=== PATIENT | male | born 1935 | race Caucasian/White ===

== ENCOUNTER 2021-02-20 04:55 | Inpatient (IN) | payer MEDICARE ==
[~2021-02-20] VITALS: Ht 188 cm; Wt 106.7 kg
[2021-02-20 04:58] VITALS: BP 170/74
[2021-02-20] MEDS ORDERED: DEXTROSE 50% 25 GM / 50ML DISP.SYRIN. IV PRN (05:15)
[2021-02-20] MEDS ORDERED: ACETAMINOPHEN 325 MG TABLET. PO PRN (05:15)
[2021-02-20] MEDS ORDERED: HEPARIN for IV BOLUS 10,000 UNIT/10 ML VIAL. IV PRN (05:15)
[2021-02-20] MEDS ORDERED: MORPHINE SULFATE 4 MG/ML INJ. IV PRN (05:15)
--- NOTE | 2021-02-20 06:00 | RAD ---
AP chest x-ray HISTORY: Covid infection patient underwent investigation. FINDINGS: Heart size normal. Aortic arch calcified plaque. No pneumothorax. Small pleural effusions a long the diaphragms blunting the lateral costophrenic angles. Mild fissural thickening at the minor f issure. There are bilateral pulmonary interstitial and alveolar infiltrates within lower lobe greater than upper lobe distribution. Bones are unremarkable. IMPRESSION: Bilateral pulmonary interstitial and alveolar infiltrates, this may represent pulmonary e elke given the presence of small bilateral pleural effusions. Disseminated infection including atypic al viral pneumonia is also a consideration Electronically signed by: Diego Moore MD (02/20/2021 5:58 AM) [facility]
[2021-02-20 07:00] VITALS: BP 148/69
[2021-02-20] MEDS ORDERED: TAMS0.4C97 PO (08:27)
[2021-02-20] MEDS ORDERED: CARV25TA2 PO (08:27)
[2021-02-20] MEDS ORDERED: METF10007 PO (08:27)
[2021-02-20] MEDS ORDERED: ATOR40TA PO (08:27)
[2021-02-20] MEDS ORDERED: ASPI-424 PO (08:27)
[2021-02-20] MEDS ORDERED: EMPA25TA PO (08:27)
[2021-02-20] MEDS: ASPIRIN ENTERIC COATED 81 MG TABLET.DR. PO SCH (10:58)
--- NOTE | 2021-02-20 10:59 | PDOC1 ---
History and Physical Date of Admission Date of Admission DATE: 02/20/21 TIME: 10:58 Identification/Chief Complaint Chief Complaint SHORTNESS OF BREATH History of Present Illness History of Present Illness 85 YR OLD MALE, TRANFER FOR [facility] ER HERE DUE TO NSTEMI, ELEVATED TROPONIN Past Medical History Cardiovascular: CHF, Hyperlipidemia Pulmonary: No pertinent hx Heme/Onc: No pertinent hx Musculoskeletal: Osteoarthritis Rheumatologic: Fibromyalgia Renal/: No pertinent hx Endocrine: Diabetes Dermatology: No pertinent hx Family History Family History: High Cholestrol, Hypertension Social History Smoke: No ALCOHOL: none Drugs: None Current Medications Current Medications Current Medications Morphine Sulfate (Morphine Sulfate) 3 mg PRN Q3HRS PRN IV PAIN; Start 02/20/21 at 05:15 Acetaminophen (Tylenol) 650 mg PRN Q6HRS PRN PO MILD PAIN / TEMP > 100.3'F; Start 02/20/21 at 05:15 Dextrose (Dextrose 50%-Water Syringe) 12.5 gm PRN Q15MIN PRN IV SEE COMMENTS; Start 02/20/21 at 05:15 Heparin Sodium/ Dextrose 250 ml @ 12.936 mls/ hr CONT PRN IV PER PROTOCOL; Start 02/20/21 at 05:15 Heparin Sodium (Porcine) (Heparin Sodium) 2,700 unit PRN Q6HRS PRN IV FOR UFH LEVEL LESS THAN 0.2; Start 02/20/21 at 05:15 Aspirin (Ecotrin) 81 mg DAILYWBKFT PO ; Start 02/20/21 at 11:00 Metoprolol Tartrate (Lopressor) 25 mg 1X ONCE PO ; Start 02/20/21 at 11:00; Stop 02/20/21 at 11:01 Metoprolol Tartrate (Lopressor) 25 mg BID PO ; Start 02/20/21 at 21:00 Clopidogrel Bisulfate (Plavix) 600 mg 1X ONCE PO ; Start 02/20/21 at 11:00; Stop 02/20/21 at 11:01 Clopidogrel Bisulfate (Plavix) 75 mg DAILYWBKFT PO ; Start 02/21/21 at 08:00 Atorvastatin Calcium (Lipitor) 40 mg QHS PO ; Start 02/20/21 at 21:00 Active Scripts Active Reported Lipitor (Atorvastatin Calcium) 40 Mg Tablet 1 Tab PO QHS Adult Low Dose Aspirin Ec (Aspirin) 81 Mg Tablet.dr 1 Tab PO DAILY 30 Days Flomax (Tamsulosin Hcl) 0.4 Mg Cap.er.24h 1 Cap PO BID Carvedilol 25 Mg Tablet 25 Mg PO DAILY Metformin Hcl 1,000 Mg Tablet 1,000 Mg PO BIDWMEALS Jardiance (Empagliflozin) 25 Mg Tablet 25 Mg PO DAILY Allergies Allergies: Coded Allergies: Penicillins (Verified Allergy, Unknown, 02/20/21) procaine (Verified Allergy, Unknown, 02/20/21) syncope ROS Review of System 14 PT ROS OTHERWISE NEG General: No: Chills, Night Sweats, Fatigue, Malaise, Appetite, Other PSYCHOLOGICAL ROS: No: Anxiety, Behavioral Disorder, Concentration difficultie, Decreased libido, Depression, Disorientation, Hallucinations, Hostility, Irritablity, Memory difficulties, Mood Swings, Obsessive thoughts, Physical abuse, Sexual abuse, Sleep disturbances, Suicidal ideation, Other Eyes: Yes Decreased vision; No Blurry vision, No Double vision, No Dry eyes, No Excessive tearing, No Eye Pain, No Itchy Eyes, No Loss of vision, No Photophobia, No Scotomata, No Uses contacts, No Uses glasses, No Other HEENT: No: Heacaches, Visual Changes, Hearing change, Nasal congestion, Nasal discharge, Oral lesions, Sinus pain, Sore Throat, Epistaxis, Sneezing, Snoring, Tinnitus, Vertigo, Vocal changes, Other ALLERGY AND IMMUNOLOGY: YES: Hives; No: Insect Bite Sensitivity, Itchy/Watery Eyes, Nasal Congestion, Post Nasal Drip, Seasonal Allergies, Other Hematological and Lymphatic: No: Bleeding Problems, Blood Clots, Blood Transfusions, Brusing, Night Sweats, Pallor, Swollen Lymph Nodes, Other ENDOCRINE: No: Breast Changes, Galactorrhea, Hair Pattern Changes, Hot Flashes, Malaise/lethargy, Mood Swings, Palpitations, Polydipsia/polyuria, Skin Changes, Temperature Intolerance, Unexpected Weight Changes, Other Breast: No New/Changing Breast Lumps, No Nipple changes, No Nipple discharge, No Other Respiratory: No: Cough, Hemoptysis, Orthopnea, Pleuritic Pain, Shortness of breath, SOB with excertion, Sputum Changes, Stridor, Tachypnea, Wheezing, Other Cardiovascular: yes Chest Pain; No Palpitations, No Orthopnea, No Paroxysmal Noc. Dyspnea, No Edema, No Lt Headedness, No Other Gastrointestinal: No Nausea, No Vomiting, No Abdominal Pain, No Diarrhea, No Constipation, No Melena, No Hematochezia, No Other Genitourinary: No Dysuria, No Frequency, No Incontinence, No Hematuria, No Retention, No Discharge, No Urgency, No Pain, No Flank Pain, No Other, No , No , No , No , No , No , No Musculoskeletal: Yes Joint Stiffness; No Gait Disturbance, No Joint Pain, No Joint Swelling, No Muscle Pain, No Muscular Weakness, No Pain In:, No Swelling In:, No Other Neurological: No Behavorial Changes, No Bowel/Bladder ControlChng, No Confusion, No Dizziness, No Gait Disturbance, No Headaches, No Impaired Coord/balance, No Memory Loss, No Numbness/Tingling, No Seizures, No Speech Problems, No Tremors, No Visual Changes, No Weakness, No Other Skin: No Dry Skin, No Eczema, No Hair Changes, No Lumps, No Mole Changes, No Mottling, No Nail Changes, No Pruritus, No Rash, No Skin Lesion Changes, No Other, No Acne Physical Exam General: Alert, Oriented X3, Cooperative, No acute distress HEENT: PERRLA Lungs: Clear to auscultation, Normal air movement Heart: RRR Breasts: Not examined Abdomen: Normal bowel sounds, Soft Rectal Exam: not examined PELVIC: Examination not indicated Extremities: No cyanosis Neuro: Normal speech, Sensation intact, Cranial nerves 3-12 NL Psych/Mental Status: Mental status NL, Mood NL Vitals Vitals Vital Signs Date Time Temp Pulse Resp B/P (MAP) Pulse Ox O2 Delivery O2 Flow Rate FiO2 02/20/21 08:00 Nasal Cannula 6.0 02/20/21 04:58 98.8 111 20 170/74 (106) 97 98.8 Labs Labs Laboratory Tests Test 02/20/21 09:25 Heparin Anti-Xa Act, Unfractionated 0.56 IU/mL (0.30-0.70) Troponin I Quantitative 16.206 ng/mL (0.000-0.055) UZ-Qzu-F-Type Natriuretic Peptide 7845 pg/mL (0-449) Laboratory Tests Test 02/20/21 09:25 Heparin Anti-Xa Act, Unfractionated 0.56 IU/mL (0.30-0.70) Troponin I Quantitative 16.206 ng/mL (0.000-0.055) AY-Kmb-R-Type Natriuretic Peptide 7845 pg/mL (0-449) VTE Prophylaxis Ordered VTE Prophylaxis Devices: Yes VTE Pharmacological Prophylaxi: Yes Assessment/Plan Assessment/Plan IMPRESSION Acute NSTEMI Acute hypoxic resp failure OBESITY Visual impairment long standing DIABETES plan admit CVC BED Consult cardiology cxr cbc, comp heparin protocol, plavix cath today planned ? MONDAY FLP Justifications for Admission Other Justification PRAVEEN PATINO MD Feb 20, 2021 10:58
[2021-02-20 11:00] VITALS: BP_SYST 136; BP_SYST 145; BP_DIAS 63; BP_DIAS 67
[2021-02-20] MEDS ORDERED: CLOPIDOGREL BISULFATE 75 MG TABLET PO ONE (11:00)
[2021-02-20] MEDS ORDERED: METOPROLOL TART IMMED RELEASE 25 MG TABLET. PO ONE (11:00)
--- NOTE | 2021-02-20 11:13 | EKG ---
[facility] [address] [place] [address] Test Date: 2021-02-20 Test Time: 10:52:53 Pat Name: AUDRA BUSBY Department: Room: [facility] Gender: M Data Control Assistant: : 1935 Requested By: SEAN SIMONS Order Number: [id number] Reading MD: Measurements Intervals [place] Rate: 91 P: 27 [place]: 168 QRS: -15 QRSD: 94 T: 10 QT: 412 QTc: 509 Interpretive Statements SINUS RHYTHM LEFTWARD AXIS PROLONGED QT NO SPECIFIC ECG ABNORMALITIES RI6.02 No previous ECG available for comparison
--- NOTE | 2021-02-20 12:11 | PDOC2 ---
CARDIOLOGY CONSULT NOTE DATE OF SERVICE: DATE: 02/20/21 TIME: 12:07 CHIEF COMPLAINT: Chest pain HPI: Mr. Morales is an 85-year-old man with past medical history as noted below who presents to the hospital in the setting of worsening anginal symptoms. He was seen in the ER at [facility] which revealed subtle inferolateral ischemic changes and an elevated troponin. He was appropriately treated with aspirin and heparinization and transferred to [facility] for further evaluation. After treatment with pain medications he feels better. Today he denies any specific angina, dyspnea, orthopnea or PND. At baseline he is able to ambulate and do most activities. He is mostly limited due to arthritis of his knees and vascular disease in his legs. He reports that he previously had stress testing and actually exercises 3-4 times a week prior to this episode of chest pain. No syncope or palpitations. PMHX: #1. Peripheral arterial disease status post femorofemoral bypass graft #2. Hypertension #3. Dyslipidemia #4. Diabetes type 2 SOCHX: No alcohol, tobacco or illicit drug use. He is . FAMHX: Noncontributory CURRENT MEDS: Current Medications Medications (Trade) Dose Ordered Sig/Royce Route PRN Reason Start Time Stop Time Status Last Admin Dose Admin Aspirin (Ecotrin) 81 mg DAILYWBKFT PO 02/20/21 11:00 02/20/21 10:58 Metoprolol Tartrate (Lopressor) 25 mg 1X ONCE PO 02/20/21 11:00 02/20/21 11:01 DC 02/20/21 10:59 Clopidogrel Bisulfate (Plavix) 600 mg 1X ONCE PO 02/20/21 11:00 02/20/21 11:01 DC 02/20/21 10:58 ALLERGIES: Allergies Coded Allergies Type Severity Reaction Last Updated Verified Penicillins Allergy Unknown 02/20/21 Yes procaine Allergy Unknown 02/20/21 Yes ROS: Negative for 10 out of 14 systems reviewed unless otherwise mentioned above in HPI PHYSICAL EXAM: Vital Signs/I&O: Vital Signs Date Time Temp Pulse Resp B/P (MAP) Pulse Ox O2 Delivery O2 Flow Rate FiO2 02/20/21 10:59 111 170/74 02/20/21 08:00 Nasal Cannula 6.0 02/20/21 04:58 98.8 20 97 98.8 I & O 02/19/21 02/19/21 02/20/21 15:00 23:00 07:00 Intake Total 0 ml Output Total 475 ml Balance -475 ml Physical Exam: GEN.: No apparent distress. Alert and oriented. HEENT: Head is normocephalic, atraumatic NECK: Supple. LUNGS: Clear to auscultation. HEART: RRR, S1, S2 present. Peripheral pulses intact ABDOMEN: Soft, nontender. Positive bowel sounds. EXTREMITIES: Without any cyanosis. Diminished pedal pulses NEUROLOGIC: Normal speech, normal tone PSYCHIATRIC: Normal affect, normal mood. SKIN: No ulcerations DIAGNOSTIC TESTING: EKG reviewed and demonstrates subtle inferolateral ischemia Troponin elevated at 16 ASSESSMENT: #1. Non-ST elevation myocardial infarction #2. History of peripheral arterial disease with lower extremity revascularization with a femorofemoral bypass graft #3. Hypertension #4. Dyslipidemia PLAN: #1. Continue anticoagulation with heparin. We will give aspirin and Plavix #2. He will also be started on statin therapy and beta-de. I discussed the risks and benefits of cardiac catheterization and he is willing to proceed. At this present time given that he is chest pain-free we will continue antiplatelet and anticoagulant therapy and obtain echocardiogram. Plan for cardiac catheterization on Monday unless his cardiac enzymes are significantly elevated. SEAN SIMONS MD Feb 20, 2021 12:11
[2021-02-20 12:26] LABS: BASO # 0.1 x10^3/uL (0.0-0.2); BASO % 1 % (0-3); EOS # 0.1 x10^3/uL (0.0-0.7); EOS % 1 % (0-3); HEMATOCRIT 23.2 % (39.0-53.0); HEMOGLOBIN 7.8 g/dL (13.0-17.5); LYMPH # 1.6 x10^3/uL (1.0-4.8); LYMPH % 13 % (24-48); MEAN CORPUSCULAR HEMOGLOBIN 31 pg (25-35); MEAN CORPUSCULAR HGB CONC 34 g/dL (31-37); MEAN CORPUSCULAR VOLUME 93 fL (79-100); MONO # 1.2 x10^3/uL (0.0-1.1); MONO % 10 % (0-9); NEUT # 9.4 x10^3/uL (1.8-7.7); NEUT % 76 % (31-73); PLATELET COUNT 251 x10^3/uL (140-400); RED BLOOD COUNT 2.51 x10^6/uL (4.30-5.70); RED CELL DISTRIBUTION WIDTH 14.9 % (11.5-14.5); WHITE BLOOD COUNT 12.4 x10^3/uL (4.0-11.0)
[2021-02-20] MEDS ORDERED: guaiFENesin ORAL 200 MG/10 ML LIQUID. PO PRN (12:30)
[2021-02-20] MEDS ORDERED: 0.9 % SODIUM CHLORIDE 10 ML DISP.SYRIN. IV PRN (12:30)
[2021-02-20] MEDS ORDERED: ONDANSETRON PF 4 MG/2 ML VIAL. IV PRN (12:30)
[2021-02-20] MEDS ORDERED: ACETAMINOPHEN 650 MG/20.3 ML SOLUTION. GT PRN (12:30)
[2021-02-20] MEDS ORDERED: ALBUTEROL SULFATE 2.5 MG/3 ML NEBU. NEB PRN (12:30)
[2021-02-20] MEDS ORDERED: SODIUM PHOSPHATES 19/7GM 133 ML ENEMA. PR PRN (12:30)
[2021-02-20 12:34] LABS: ALBUMIN 3.2 g/dL (3.4-5.0); ALBUMIN/GLOBULIN RATIO 1.1 (1.0-1.7); CALCIUM 9.6 mg/dL (8.5-10.1); CREATININE 1.7 mg/dL (0.7-1.3); GFR 38.7; POTASSIUM 4.7 mmol/L (3.5-5.1); TOTAL BILIRUBIN 0.4 mg/dL (0.2-1.0); TOTAL PROTEIN 6.1 g/dL (6.4-8.2)
[2021-02-20 13:07] LABS: CHOLESTEROL/HDL RATIO 5.6
[2021-02-20 15:00] VITALS: BP 129/61
[2021-02-20] MEDS: IV NORMAL SALINE 1000ML BAG 1,000 ML IV SCH (16:44)
[2021-02-20] MEDS: TAMSULOSIN 0.4 MG CAP.ER.24H. PO SCH ×2 (16:57→20:38)
[2021-02-20 19:00] VITALS: BP 157/56
[2021-02-20] MEDS: ATORVASTATIN CALCIUM 40 MG TABLET. PO SCH (20:38)
[2021-02-20] MEDS: METOPROLOL TART IMMED RELEASE 25 MG TABLET. PO SCH (20:39)
[2021-02-20 23:00] VITALS: BP 118/58
[2021-02-21] VITALS (14 sets, daily range): BP systolic 126–162; BP diastolic 59–73
[2021-02-21] MEDS: HEPARIN 25,000UTS/250ML PREMIX 250 ML IV PRN ×2 (00:46→23:43)
[2021-02-21] MEDS: IV NORMAL SALINE 1000ML BAG 1,000 ML IV SCH (02:38)
--- NOTE | 2021-02-21 05:51 | EKG ---
[facility] [address] [place] [address] Test Date: 2021-02-21 Test Time: 05:41:51 Pat Name: AUDRA BUSBY Department: Room: [facility] Gender: M [employer]el Plant Operator: ELIZABETH : 1935 Requested By: PRAVEEN PATINO Order Number: [id number] Reading MD: Measurements Intervals [place] Rate: 93 P: 26 MS: 162 QRS: -20 QRSD: 92 T: 23 QT: 314 QTc: 393 Interpretive Statements SINUS RHYTHM LEFTWARD AXIS R-S TRANSITION ZONE IN V LEADS DISPLACED TO THE RIGHT QRS(T) CONTOUR ABNORMALITY CONSIDER ANTEROSEPTAL MYOCARDIAL DAMAGE ST & T ABNORMALITY, CONSIDER ANTERIOR ISCHEMIA OR LEFT VENTRICULAR STRAIN INFERIOR ISCHEMIA OR LEFT VENTRICULAR STRAIN ABNORMAL ECG RI6.02 Compared to ECG 02/20/2021 10:52:53 T-wave abnormality now present Possible ischemia now present Prolonged QT interval no longer present
[2021-02-21] MEDS ORDERED: NITROGLYCERIN SUBLINGUAL 0.4 MG BOTTLE OF 25. SL PRN (06:00)
[2021-02-21] MEDS: ASPIRIN ENTERIC COATED 81 MG TABLET.DR. PO SCH (07:44)
[2021-02-21] MEDS: METOPROLOL TART IMMED RELEASE 25 MG TABLET. PO SCH ×2 (07:45→20:24)
[2021-02-21] MEDS: TAMSULOSIN 0.4 MG CAP.ER.24H. PO SCH ×2 (07:45→20:23)
[2021-02-21] MEDS ORDERED: CLOPIDOGREL BISULFATE 75 MG TABLET PO SCH (08:00)
[2021-02-21] MEDS ORDERED: IODIXANOL 320 MG/ML 100 ML VIAL. ONE (08:53)
[2021-02-21] MEDS ORDERED: LIDOCAINE 1% PF 2 ML VIAL. ONE (08:53)
[2021-02-21] MEDS ORDERED: HEPARIN for ARTERIAL LINE 1,500 ML ONE (08:53)
[2021-02-21 08:58] LABS: HEMATOCRIT 22.6 % (39.0-53.0); HEMOGLOBIN 7.6 g/dL (13.0-17.5); RED BLOOD COUNT 2.44 x10^6/uL (4.30-5.70); RED CELL DISTRIBUTION WIDTH 14.9 % (11.5-14.5); WHITE BLOOD COUNT 12.3 x10^3/uL (4.0-11.0)
[2021-02-21] MEDS ORDERED: ASPIRIN ENTERIC COATED 81 MG TABLET.DR. PO SCH (09:00)
[2021-02-21] MEDS ORDERED: NON FORMULARY ITEM (Empagliflozin (Jardiance) 25 MG) PO SCH (09:00)
[2021-02-21] MEDS: FLUTICASONE 50MCG/NASAL SPRAY 16GM BOTTLE. NS SCH (09:00)
[2021-02-21] MEDS ORDERED: NON FORMULARY ITEM (Carvedilol 25 MG) PO SCH (09:00)
[2021-02-21] MEDS ORDERED: MIDAZOLAM HCL/PF 2 MG/2 ML VIAL. ONE (09:09)
[2021-02-21] MEDS ORDERED: fentaNYL PF VIAL 100 MCG/2 ML VIAL ONE (09:09)
[2021-02-21] MEDS ORDERED: HEPARIN for IV BOLUS 10,000 UNIT/10 ML VIAL. ONE (09:10)
[2021-02-21] MEDS ORDERED: NITROGLYCERIN 200 MCG/2 ML SYRINGE FOR CATH/VASC LAB. ONE (09:10)
[2021-02-21] MEDS ORDERED: VERAPAMIL 5 MG/2 ML VIAL. ONE (09:10)
[2021-02-21] MEDS ORDERED: VERAPAMIL 5 MG/2 ML VIAL. IART ONE (09:30)
[2021-02-21] MEDS ORDERED: fentaNYL PF VIAL 100 MCG/2 ML VIAL IV ONE (09:30)
[2021-02-21] MEDS ORDERED: HEPARIN for IV BOLUS 10,000 UNIT/10 ML VIAL. IART ONE (09:30)
[2021-02-21] MEDS ORDERED: NITROGLYCERIN 200 MCG/2 ML SYRINGE FOR CATH/VASC LAB. IART ONE (09:30)
[2021-02-21] MEDS ORDERED: LIDOCAINE 1% PF 2 ML VIAL. INJ ONE ×2 (09:30→10:00)
[2021-02-21] MEDS ORDERED: IODIXANOL 320 MG/ML 100 ML VIAL. IART ONE (09:30)
[2021-02-21] MEDS ORDERED: MIDAZOLAM HCL/PF 2 MG/2 ML VIAL. IV ONE (09:30)
[2021-02-21] MEDS ORDERED: CONTRAST GIVEN. MC PRN (09:45)
[2021-02-21] MEDS ORDERED: FUROSEMIDE 40 MG/4 ML VIAL. IVP ONE (10:45)
--- NOTE | 2021-02-21 10:50 | PDOC ---
PROGRESS NOTES Date of Service: DATE: 02/21/21 TIME: 10:50 Chief Complaint Chief Complaint Assessment/Plan Assessment/Plan IMPRESSION Acute NSTEMI Acute hypoxic resp failure OBESITY Visual impairment long standing DIABETES plan admit CVC BED Consult cardiology cxr cbc, comp heparin protocol, plavix cath today planned / STENTS MONDAY FLP D/W IN ROOM Justifications for Admission Other Justification History of Present Illness History of Present Illness Identification/Chief Complaint Chief Complaint SHORTNESS OF BREATH History of Present Illness History of Present Illness 85 YR OLD MALE, TRANFER FOR [facility] ER HERE DUE TO NSTEMI, ELEVATED TROPONIN Past Medical History Cardiovascular: CHF, Hyperlipidemia Pulmonary: No pertinent hx Heme/Onc: No pertinent hx Musculoskeletal: Osteoarthritis Rheumatologic: Fibromyalgia Renal/: No pertinent hx Endocrine: Diabetes Dermatology: No pertinent hx Family History Family History: High Cholestrol, Hypertension Social History Smoke: No ALCOHOL: none Drugs: None Current Medications Current Medications Current Medications Morphine Sulfate (Morphine Sulfate) 3 mg PRN Q3HRS PRN IV PAIN; Start 02/20/21 at 05:15 Acetaminophen (Tylenol) 650 mg PRN Q6HRS PRN PO MILD PAIN / TEMP > 100.3'F; Start 02/20/21 at 05:15 Dextrose (Dextrose 50%-Water Syringe) 12.5 gm PRN Q15MIN PRN IV SEE COMMENTS; Start 02/20/21 at 05:15 Heparin Sodium/ Dextrose 250 ml @ 12.936 mls/ hr CONT PRN IV PER PROTOCOL; Start 02/20/21 at 05:15 Heparin Sodium (Porcine) (Heparin Sodium) 2,700 unit PRN Q6HRS PRN IV FOR UFH LEVEL LESS THAN 0.2; Start 02/20/21 at 05:15 Aspirin (Ecotrin) 81 mg DAILYWBKFT PO ; Start 02/20/21 at 11:00 Metoprolol Tartrate (Lopressor) 25 mg 1X ONCE PO ; Start 02/20/21 at 11:00; Stop 02/20/21 at 11:01 Metoprolol Tartrate (Lopressor) 25 mg BID PO ; Start 02/20/21 at 21:00 Clopidogrel Bisulfate (Plavix) 600 mg 1X ONCE PO ; Start 02/20/21 at 11:00; Stop 02/20/21 at 11:01 Clopidogrel Bisulfate (Plavix) 75 mg DAILYWBKFT PO ; Start 02/21/21 at 08:00 Atorvastatin Calcium (Lipitor) 40 mg QHS PO ; Start 02/20/21 at 21:00 Active Scripts Active Reported Lipitor (Atorvastatin Calcium) 40 Mg Tablet 1 Tab PO QHS Adult Low Dose Aspirin Ec (Aspirin) 81 Mg Tablet.dr 1 Tab PO DAILY 30 Days Flomax (Tamsulosin Hcl) 0.4 Mg Cap.er.24h 1 Cap PO BID Carvedilol 25 Mg Tablet 25 Mg PO DAILY Metformin Hcl 1,000 Mg Tablet 1,000 Mg PO BIDWMEALS Jardiance (Empagliflozin) 25 Mg Tablet 25 Mg PO DAILY Allergies Allergies: Coded Allergies: Penicillins (Verified Allergy, Unknown, 02/20/21) procaine (Verified Allergy, Unknown, 02/20/21) syncope ROS Review of System 14 PT ROS OTHERWISE NEG General: No: Chills, Night Sweats, Fatigue, Malaise, Appetite, Other PSYCHOLOGICAL ROS: No: Anxiety, Behavioral Disorder, Concentration difficultie, Decreased libido, Depression, Disorientation, Hallucinations, Hostility, Irritablity, Memory difficulties, Mood Swings, Obsessive thoughts, Physical abuse, Sexual abuse, Sleep disturbances, Suicidal ideation, Other Eyes: Yes Decreased vision; No Blurry vision, No Double vision, No Dry eyes, No Excessive tearing, No Eye Pain, No Itchy Eyes, No Loss of vision, No Photophobia, No Scotomata, No Uses contacts, No Uses glasses, No Other HEENT: No: Heacaches, Visual Changes, Hearing change, Nasal congestion, Nasal discharge, Oral lesions, Sinus pain, Sore Throat, Epistaxis, Sneezing, Snoring, Tinnitus, Vertigo, Vocal changes, Other ALLERGY AND IMMUNOLOGY: YES: Hives; No: Insect Bite Sensitivity, Itchy/Watery Eyes, Nasal Congestion, Post Nasal Drip, Seasonal Allergies, Other Hematological and Lymphatic: No: Bleeding Problems, Blood Clots, Blood Transfusions, Brusing, Night Sweats, Pallor, Swollen Lymph Nodes, Other ENDOCRINE: No: Breast Changes, Galactorrhea, Hair Pattern Changes, Hot Flashes, Malaise/lethargy, Mood Swings, Palpitations, Polydipsia/polyuria, Skin Changes, Temperature Intolerance, Unexpected Weight Changes, Other Breast: No New/Changing Breast Lumps, No Nipple changes, No Nipple discharge, No Other Respiratory: No: Cough, Hemoptysis, Orthopnea, Pleuritic Pain, Shortness of breath, SOB with excertion, Sputum Changes, Stridor, Tachypnea, Wheezing, Other Cardiovascular: yes Chest Pain; No Palpitations, No Orthopnea, No Paroxysmal Noc. Dyspnea, No Edema, No Lt Headedness, No Other Gastrointestinal: No Nausea, No Vomiting, No Abdominal Pain, No Diarrhea, No Constipation, No Melena, No Hematochezia, No Other Genitourinary: No Dysuria, No Frequency, No Incontinence, No Hematuria, No Retention, No Discharge, No Urgency, No Pain, No Flank Pain, No Other, No , No , No , No , No , No , No Musculoskeletal: Yes Joint Stiffness; No Gait Disturbance, No Joint Pain, No Joint Swelling, No Muscle Pain, No Muscular Weakness, No Pain In:, No Swelling In:, No Other Neurological: No Behavorial Changes, No Bowel/Bladder ControlChng, No Confusion, No Dizziness, No Gait Disturbance, No Headaches, No Impaired Coord/balance, No Memory Loss, No Numbness/Tingling, No Seizures, No Speech Problems, No Tremors, No Visual Changes, No Weakness, No Other Skin: No Dry Skin, No Eczema, No Hair Changes, No Lumps, No Mole Changes, No Mottling, No Nail Changes, No Pruritus, No Rash, No Skin Lesion Changes, No Other, No Acne Vitals Vitals Vital Signs Date Time Temp Pulse Resp B/P (MAP) Pulse Ox O2 Delivery O2 Flow Rate FiO2 02/21/21 10:34 16 99 Nasal Cannula 3.0 02/21/21 10:34 96 114/56 02/21/21 06:36 98.6 98.6 Physical Exam General: Alert, Oriented X3, Cooperative, No acute distress Heart: Regular rate Lungs: Clear Abdomen: Normal bowel sounds, Soft, No tenderness Extremities: No clubbing, No cyanosis Labs LABS Laboratory Tests Test 02/20/21 14:50 02/20/21 17:30 02/20/21 19:50 02/20/21 20:20 Troponin I Quantitative 27.093 ng/mL (0.000-0.055) 31.930 ng/mL (0.000-0.055) Heparin Anti-Xa Act, Unfractionated 0.76 IU/mL (0.30-0.70) Glucose (Fingerstick) 207 mg/dL (70-99) Test 02/21/21 00:30 02/21/21 07:36 02/21/21 08:20 02/21/21 08:36 Heparin Anti-Xa Act, Unfractionated 0.47 IU/mL (0.30-0.70) Glucose (Fingerstick) 88 mg/dL (70-99) 162 mg/dL (70-99) White Blood Count 12.3 x10^3/uL (4.0-11.0) Red Blood Count 2.44 x10^6/uL (4.30-5.70) Hemoglobin 7.6 g/dL (13.0-17.5) Hematocrit 22.6 % (39.0-53.0) Mean Corpuscular Volume 93 fL (79-100) Mean Corpuscular Hemoglobin 31 pg (25-35) Mean Corpuscular Hemoglobin Concent 34 g/dL (31-37) Red Cell Distribution Width 14.9 % (11.5-14.5) Platelet Count 265 x10^3/uL (140-400) Comment Review of Relevant I have reviewed the following items riky (where applicable) has been applied. Labs Laboratory Tests Test 02/20/21 09:25 02/20/21 14:50 02/20/21 17:30 02/20/21 19:50 White Blood Count 12.4 x10^3/uL (4.0-11.0) Red Blood Count 2.51 x10^6/uL (4.30-5.70) Hemoglobin 7.8 g/dL (13.0-17.5) Hematocrit 23.2 % (39.0-53.0) Mean Corpuscular Volume 93 fL (79-100) Mean Corpuscular Hemoglobin 31 pg (25-35) Mean Corpuscular Hemoglobin Concent 34 g/dL (31-37) Red Cell Distribution Width 14.9 % (11.5-14.5) Platelet Count 251 x10^3/uL (140-400) Neutrophils (%) (Auto) 76 % (31-73) Lymphocytes (%) (Auto) 13 % (24-48) Monocytes (%) (Auto) 10 % (0-9) Eosinophils (%) (Auto) 1 % (0-3) Basophils (%) (Auto) 1 % (0-3) Neutrophils # (Auto) 9.4 x10^3/uL (1.8-7.7) Lymphocytes # (Auto) 1.6 x10^3/uL (1.0-4.8) Monocytes # (Auto) 1.2 x10^3/uL (0.0-1.1) Eosinophils # (Auto) 0.1 x10^3/uL (0.0-0.7) Basophils # (Auto) 0.1 x10^3/uL (0.0-0.2) Heparin Anti-Xa Act, Unfractionated 0.56 IU/mL (0.30-0.70) 0.76 IU/mL (0.30-0.70) Sodium Level 142 mmol/L (136-145) Potassium Level 4.7 mmol/L (3.5-5.1) Chloride Level 108 mmol/L (98-107) Carbon Dioxide Level 25 mmol/L (21-32) Anion Gap 9 (6-14) Blood Urea Nitrogen 26 mg/dL (8-26) Creatinine 1.7 mg/dL (0.7-1.3) Estimated GFR (Cockcroft-Gault) 38.7 BUN/Creatinine Ratio 15 (6-20) Glucose Level 178 mg/dL (70-99) Calcium Level 9.6 mg/dL (8.5-10.1) Total Bilirubin 0.4 mg/dL (0.2-1.0) Aspartate Amino Transf (AST/SGOT) 66 U/L (15-37) Alanine Aminotransferase (ALT/SGPT) 23 U/L (16-63) Alkaline Phosphatase 87 U/L (46-116) Troponin I Quantitative 16.206 ng/mL (0.000-0.055) 27.093 ng/mL (0.000-0.055) ES-Pxe-G-Type Natriuretic Peptide 7845 pg/mL (0-449) Total Protein 6.1 g/dL (6.4-8.2) Albumin 3.2 g/dL (3.4-5.0) Albumin/Globulin Ratio 1.1 (1.0-1.7) Triglycerides Level 191 mg/dL (0-150) Cholesterol Level 200 mg/dL (0-200) LDL Cholesterol, Calculated 126 mg/dL (0-100) VLDL Cholesterol, Calculated 38 mg/dL (0-40) Non-HDL Cholesterol Calculated 164 mg/dL (0-129) HDL Cholesterol 36 mg/dL (40-60) Cholesterol/HDL Ratio 5.6 Glucose (Fingerstick) 207 mg/dL (70-99) Test 02/20/21 20:20 02/21/21 00:30 02/21/21 07:36 02/21/21 08:20 Troponin I Quantitative 31.930 ng/mL (0.000-0.055) Heparin Anti-Xa Act, Unfractionated 0.47 IU/mL (0.30-0.70) Glucose (Fingerstick) 88 mg/dL (70-99) White Blood Count 12.3 x10^3/uL (4.0-11.0) Red Blood Count 2.44 x10^6/uL (4.30-5.70) Hemoglobin 7.6 g/dL (13.0-17.5) Hematocrit 22.6 % (39.0-53.0) Mean Corpuscular Volume 93 fL (79-100) Mean Corpuscular Hemoglobin 31 pg (25-35) Mean Corpuscular Hemoglobin Concent 34 g/dL (31-37) Red Cell Distribution Width 14.9 % (11.5-14.5) Platelet Count 265 x10^3/uL (140-400) Test 02/21/21 08:36 Glucose (Fingerstick) 162 mg/dL (70-99) Laboratory Tests Test 02/20/21 14:50 02/20/21 17:30 02/20/21 19:50 02/20/21 20:20 Troponin I Quantitative 27.093 ng/mL (0.000-0.055) 31.930 ng/mL (0.000-0.055) Heparin Anti-Xa Act, Unfractionated 0.76 IU/mL (0.30-0.70) Glucose (Fingerstick) 207 mg/dL (70-99) Test 02/21/21 00:30 02/21/21 07:36 02/21/21 08:20 02/21/21 08:36 Heparin Anti-Xa Act, Unfractionated 0.47 IU/mL (0.30-0.70) Glucose (Fingerstick) 88 mg/dL (70-99) 162 mg/dL (70-99) White Blood Count 12.3 x10^3/uL (4.0-11.0) Red Blood Count 2.44 x10^6/uL (4.30-5.70) Hemoglobin 7.6 g/dL (13.0-17.5) Hematocrit 22.6 % (39.0-53.0) Mean Corpuscular Volume 93 fL (79-100) Mean Corpuscular Hemoglobin 31 pg (25-35) Mean Corpuscular Hemoglobin Concent 34 g/dL (31-37) Red Cell Distribution Width 14.9 % (11.5-14.5) Platelet Count 265 x10^3/uL (140-400) Medications Current Medications Morphine Sulfate (Morphine Sulfate) 3 mg PRN Q3HRS PRN IV PAIN; Start 02/20/21 at 05:15 Acetaminophen (Tylenol) 650 mg PRN Q6HRS PRN PO MILD PAIN / TEMP > 100.3'F; Start 02/20/21 at 05:15 Dextrose (Dextrose 50%-Water Syringe) 12.5 gm PRN Q15MIN PRN IV SEE COMMENTS; Start 02/20/21 at 05:15 Heparin Sodium/ Dextrose 250 ml @ 12.936 mls/ hr CONT PRN IV PER PROTOCOL Last administered on 02/21/21at 00:46; Start 02/20/21 at 05:15 Heparin Sodium (Porcine) (Heparin Sodium) 2,700 unit PRN Q6HRS PRN IV FOR UFH LEVEL LESS THAN 0.2; Start 02/20/21 at 05:15 Aspirin (Ecotrin) 81 mg DAILYWBKFT PO Last administered on 02/21/21at 07:44; Start 02/20/21 at 11:00 Metoprolol Tartrate (Lopressor) 25 mg 1X ONCE PO Last administered on 02/20/21at 10:59; Start 02/20/21 at 11:00; Stop 02/20/21 at 11:01; Status DC Metoprolol Tartrate (Lopressor) 25 mg BID PO Last administered on 02/21/21at 07:45; Start 02/20/21 at 21:00 Clopidogrel Bisulfate (Plavix) 600 mg 1X ONCE PO Last administered on 02/20/21at 10:58; Start 02/20/21 at 11:00; Stop 02/20/21 at 11:01; Status DC Clopidogrel Bisulfate (Plavix) 75 mg DAILYWBKFT PO Last administered on 02/21/21at 07:44; Start 02/21/21 at 08:00; Stop 02/21/21 at 10:20; Status DC Atorvastatin Calcium (Lipitor) 40 mg QHS PO Last administered on 02/20/21at 20:38; Start 02/20/21 at 21:00 Sodium Chloride (Normal Saline Flush) 3 ml QSHIFT PRN IV AFTER MEDS AND BLOOD DRAWS; Start 02/20/21 at 12:30 Ondansetron HCl (Zofran) 4 mg PRN Q4HRS PRN IV NAUSEA/VOMITING; Start 02/20/21 at 12:30 Acetaminophen (Tylenol) 650 mg PRN Q4HRS PRN GT TEMP OVER 100.4F OR MILD PAIN; Start 02/20/21 at 12:30 Sodium Monofluorophosphate (Fleet Adult) 133 ml PRN DAILY PRN [place] CONSTIPATION; Start 02/20/21 at 12:30 Albuterol Sulfate (Ventolin Neb Soln) 2.5 mg PRN Q4HRS PRN NEB SHORTNESS OF BREATH; Start 02/20/21 at 12:30 Guaifenesin (Robitussin) 200 mg PRN Q4HRS PRN PO COUGH; Start 02/20/21 at 12:30 Aspirin (Ecotrin) 81 mg DAILY PO ; Start 02/21/21 at 09:00; Status UNV Tamsulosin HCl (Flomax) 0.4 mg BID PO Last administered on 02/21/21at 07:45; Start 02/20/21 at 15:00 Non-Formulary Medication (Carvedilol ) 25 mg DAILY PO ; Start 02/21/21 at 09:00; Status UNV Non-Formulary Medication (Empagliflozin (Jardiance)) 25 mg DAILY PO ; Start 02/21/21 at 09:00; Status UNV Sodium Chloride 1,000 ml @ 100 mls/hr Q10H IV Last administered on 02/21/21at 02:38; Start 02/20/21 at 16:00; Stop 02/21/21 at 10:20; Status DC Nitroglycerin (Nitrostat) 0.4 mg PRN Q5MIN PRN SL CHEST PAIN Last administered on 02/21/21at 06:03; Start 02/21/21 at 06:00 Fluticasone Propionate (Flonase) 2 spray DAILY NS Last administered on 02/21/21at 09:00; Start 02/21/21 at 10:00 Lidocaine HCl (Xylocaine-Mpf 1% 2ml Vial) 2 ml STK-MED ONCE .ROUTE ; Start at 08:53; Stop 02/21/21 at 08:53; Status DC Iodixanol (Visipaque 320) 100 ml STK-MED ONCE .ROUTE ; Start 02/21/21 at 08:53; Stop 02/21/21 at 08:53; Status DC Heparin Sodium/ Sodium Chloride 1,500 ml @ As Directed STK-MED ONCE .ROUTE ; Start 02/21/21 at 08:53; Stop 02/21/21 at 08:53; Status DC Fentanyl Citrate (Fentanyl 2ml Vial) 100 mcg STK-MED ONCE .ROUTE ; Start 1 at 09:09; Stop 02/21/21 at 09:10; Status DC Midazolam HCl (Versed) 2 mg STK-MED ONCE .ROUTE ; Start 02/21/21 at 09:09; Stop 02/21/21 at 09:10; Status DC Heparin Sodium (Porcine) (Heparin Sodium) 10,000 unit STK-MED ONCE .ROUTE ; Start 02/21/21 at 09:10; Stop 02/21/21 at 09:10; Status DC Verapamil HCl (Verapamil) 5 mg STK-MED ONCE .ROUTE ; Start 02/21/21 at 09:10; Stop 02/21/21 at 09:10; Status DC Nitroglycerin (Nitroglycerin) 200 mcg STK-MED ONCE .ROUTE ; Start 02/21/21 at 09:10; Stop 02/21/21 at 09:10; Status DC Nitroglycerin (Nitroglycerin) 200 mcg 1X ONCE IART Last administered on 02/21/21at 09:30; Start 02/21/21 at 09:30; Stop 02/21/21 at 09:35; Status DC Verapamil HCl (Verapamil) 2.5 mg 1X ONCE IART Last administered on 02/21/21at 10:34; Start 02/21/21 at 09:30; Stop 02/21/21 at 09:35; Status DC Heparin Sodium (Porcine) (Heparin Sodium) 2,500 unit 1X ONCE IART Last administered on 02/21/21at 10:35; Start 02/21/21 at 09:30; Stop 02/21/21 at 09:35; Status DC Heparin Sodium/ Sodium Chloride (HEPARIN for ARTERIAL LINE FLUSH) 1,000 unit 1X ONCE IART Last administered on 02/21/21at 10:32; Start 02/21/21 at 09:30; Stop 02/21/21 at 09:35; Status DC Heparin Sodium/ Sodium Chloride (HEPARIN for ARTERIAL LINE FLUSH) 1,000 unit 1X ONCE IART Last administered on 02/21/21at 10:32; Start 02/21/21 at 09:30; Stop 02/21/21 at 09:35; Status DC Midazolam HCl (Versed) 2 mg 1X ONCE IV Last administered on 02/21/21at 10:33; Start 02/21/21 at 09:30; Stop 02/21/21 at 09:35; Status DC Fentanyl Citrate (Fentanyl 2ml Vial) 100 mcg 1X ONCE IV Last administered on 02/21/21at 10:34; Start 02/21/21 at 09:30; Stop 02/21/21 at 09:35; Status DC Iodixanol (Visipaque 320) 100 ml 1X ONCE IART Last administered on 02/21/21at 10:32; Start 02/21/21 at 09:30; Stop 02/21/21 at 09:35; Status DC Lidocaine HCl (Xylocaine-Mpf 1% 2ml Vial) 2 ml 1X ONCE INJ Last administered on 02/21/21at 10:35; Start 02/21/21 at 09:30; Stop 02/21/21 at 09:35; Status DC Info (CONTRAST GIVEN -- Rx MONITORING) 1 each PRN DAILY PRN MC SEE COMMENTS; Start 02/21/21 at 09:45; Stop 02/23/21 at 09:44 Lidocaine HCl (Xylocaine-Mpf 1% 2ml Vial) 2 ml 1X ONCE INJ ; Start 02/21/21 at 10:00; Stop 02/21/21 at 10:20; Status DC Furosemide (Lasix) 40 mg 1X ONCE IVP ; Start 02/21/21 at 10:45; Stop 02/21/21 at 10:46; Status DC Active Scripts Active Reported Lipitor (Atorvastatin Calcium) 40 Mg Tablet 1 Tab PO QHS Adult Low Dose Aspirin Ec (Aspirin) 81 Mg Tablet.dr 1 Tab PO DAILY 30 Days Flomax (Tamsulosin Hcl) 0.4 Mg Cap.er.24h 1 Cap PO BID Carvedilol 25 Mg Tablet 25 Mg PO DAILY Metformin Hcl 1,000 Mg Tablet 1,000 Mg PO BIDWMEALS Jardiance (Empagliflozin) 25 Mg Tablet 25 Mg PO DAILY Vitals/I & O Vital Sign - Last 24 Hours 02/20/21 02/20/21 02/20/21 02/20/21 10:59 11:00 11:00 15:00 Temp 97.9 98.3 97.9 98.3 Pulse 111 90 76 82 Resp 20 20 B/P (MAP) 170/74 136/63 (87) 145/67 (93) 129/61 (83) Pulse Ox 99 98 O2 Delivery Nasal Cannula Nasal Cannula Nasal Cannula O2 Flow Rate 6.0 6.0 02/20/21 02/20/21 02/20/21 02/20/21 19:00 19:49 20:39 23:00 Temp 98.2 98.5 98.2 98.5 Pulse 78 78 76 Resp 18 18 B/P (MAP) 157/56 (89) 157/56 118/58 (78) Pulse Ox 97 96 O2 Delivery Nasal Cannula Nasal Cannula Nasal Cannula O2 Flow Rate 6.0 4.0 4.0 02/21/21 02/21/21 02/21/21 02/21/21 03:00 06:03 06:36 07:45 Temp 98.3 98.6 98.3 98.6 Pulse 85 94 88 Resp 18 18 B/P (MAP) 131/63 (85) 158/67 158/67 (97) 158/67 Pulse Ox 95 95 O2 Delivery Nasal Cannula Nasal Cannula O2 Flow Rate 4.0 4.0 02/21/21 02/21/21 02/21/21 08:00 10:34 10:34 Pulse 96 Resp 16 B/P (MAP) 114/56 Pulse Ox 99 O2 Delivery Nasal Cannula Nasal Cannula O2 Flow Rate 3.0 3.0 Intake and Output 02/20/21 02/20/21 02/21/21 15:00 23:00 07:00 Intake Total 0 ml Output Total 250 ml Balance -250 ml 0 ml Justicifation of Admission Dx: Justifications for Admission: Justification of Admission Dx: Yes CA: Acute NSTEMI PRAVEEN PATINO MD Feb 21, 2021 10:50
--- NOTE | 2021-02-21 15:21 | CARD ---
MR#: [id number] Date of Study: 02/21/2021 Ordering Physician: SEAN SCHERER, Referring Physician: SEAN SCHERER, Tech: RT Dawson(R) APPROVED REPORT Technologist: Robyn Mejia RT(R) Nurse: Eden Cool RN Procedure(s) performed: Fluoro Time: 3.0 MIN Dose: 74 Gycm2 Contrast: 67ccs Mod Sed: 41 min LHC, Coronary angiography INDICATION The indication(s) include : non-STEMI . [facility] Clinical Frailty Scale [facility] Clinical Frailty Scale: Managing Well Heart Failure Heart Failure: Yes If Yes, Newly Diagnosed: Yes If Yes, HF Type: Diastolic If Yes, NYHA Class: Class III CASE TECHNIQUE IV conscious sedation was used throughout procedure with appropriate monitoring and was performed in the presence of a registered nurse who was an independent trained observer other than the physician p erforming the procedure. During this case, Fluoroscopy and low osmolar contrast were used for imaging . Specimen(s) Removed: N/A Estimated Blood loss: 15 cc's. PROCEDURE NARRATIVE Clinical information: 85-year-old man presented to the hospital in the setting of chest pain. He was found to have an elev ated troponin. After discussion with risks and benefits he was taken to the catheterization laborato for further evaluation. Procedure details: Under 1% lidocaine local anesthesia a 6 [place] sheath was placed in the right radial artery via the S eldinger technique without difficulty. Next, diagnostic angiography was performed with a 6 [place] TI G catheter, 6 [place] JL 5 catheter and a 6 [place] pigtail catheter. Left ventricular end-diastolic p ressure was obtained and a pullback was performed. At case completion all catheters and sheaths were removed and hemostasis was achieved with a Terumo radial band inflated to 11 mL. No acute complicat ions noted Findings: Aorta 140/80 LVEDP 31 mmHg No LV to aortic valve pullback gradient Coronary angiography: Left main is a large-caliber vessel with a distal 50% stenosis LAD is a moderate caliber vessel with a mid 80% stenosis Ramus is a moderate caliber vessel with a proximal subtotal occlusion D1 is a small caliber diffusely diseased vessel with up to a 90% stenosis Left circumflex is a moderate caliber nondominant vessel with mild diffuse irregularities OM1 is a small caliber vessel with a proximal 80% stenosis RCA is a large caliber dominant vessel with an ostial 80% stenosis and of diffuse proximal to mid 70% stenosis Conclusion 1. Acute systolic and diastolic heart failure, LVEDP 31 mmHg 2. 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 I had a long discussion with the patient and his regarding various options for treatment. W e discussed the possibility of bypass surgery as well as complex PCI. Given his severe vascular dise ase he would be high risk for PCI. After thorough discussion the patient and family wish to proceed with PCI. I did offer the patient and his the opportunity to discuss their case with the [facility] surgeon but they had refused and the patient is not interested in cardiac surgery at this time. 2. We will plan for continuation of aspirin, Plavix and heparin drip. Optimize hemodynamic status a nd plan for high risk complex PCI in the next 24 to 48 hours. Signed by : Sean Scherer, Electronically Approved : 02/21/2021 15:20:38
--- NOTE | 2021-02-21 15:26 | CARD ---
MR#: [id number] Date of Study: 02/21/2021 Ordering Physician: SEAN SIMONS, Referring Physician: SEAN SIMONS, Tech: Justina Valenzuela [facility] APPROVED REPORT EXAM: Two-dimensional and M-mode echocardiogram with Doppler and color Doppler. Other Information Quality : AverageHR: 87bpm Rhythm : NSR INDICATION CAD Chest Pain RISK FACTORS Hypertension Obesity 2D DIMENSIONS RVDd3.3 (2.9-3.5cm)Left Atrium(2D)4.1 (1.6-4.0cm) IVSd1.4 (0.7-1.1cm)Aortic Root(2D)3.2 (2.0-3.7cm) LVDd6.4 (3.9-5.9cm)LVOT Diameter2.6 (1.8-2.4cm) PWd1.3 (0.7-1.1cm)LVDs4.1 (2.5-4.0cm) FS (%) 36.0 %SV136.6 ml LVEF(%)64.5 (>50%) Aortic Valve AoV Peak Case.198.1cm/sAoV VTI32.3cm AO Peak GR.15.7mmHgLVOT Peak Case.110.1cm/s AO Mean GR.8mmHgAVA (VMAX)3.03cm2 Mitral Valve MV E Jvxceyqi23.8cm/sMV DECEL DJOT366gu MV A Kbcwqlok15.5cm/sE/A Ratio1.1 Pulmonary Valve PV Peak Nkzhfavs76.9cm/s Tricuspid Valve TR P. Fllymfqv075iu/sTR Peak Gr.49mmHg LEFT VENTRICLE The Left Ventricle is mildly dilated. There is mild concentric left ventricular hypertrophy. The syst olic function is severely impaired. EF 30-35%. The septum, anterior and lateral montgomery are severely hy pokinetic. Tissue Doppler imaging reveals moderate left ventricular diastolic dysfunction. No left ve ntricle thrombus noted on this study. There is no ventricular septal defect visualized. RIGHT VENTRICLE The right ventricle is normal size. There is normal right ventricular wall thickness. The right ventr icular systolic function is normal. ATRIA The left atrium is mildly dilated. The right atrium is mildly dilated. The interatrial septum is inta ct with no evidence for an atrial septal defect or patent foramen ovale as noted on 2-D or Doppler im aging. AORTIC VALVE The aortic valve is normal in structure and function. Doppler and Color Flow revealed mild aortic reg urgitation. There is no significant aortic valvular stenosis. MITRAL VALVE The mitral valve mildly calcified. The posterior leaflet is restricted. There is no evidence of sergio l valve prolapse. There is no mitral valve stenosis. Doppler and Color-flow revealed severe eccentric posteriorly directed mitral regurgitation. TRICUSPID VALVE The tricuspid valve is normal in structure and function. Doppler and Color Flow revealed mild tricusp id regurgitation. Estimated PAP 55 mmHg. There is no tricuspid valve stenosis. PULMONIC VALVE Doppler and Color Flow revealed trace pulmonic valvular regurgitation. There is no pulmonic valvular stenosis. GREAT VESSELS The aortic root is normal in size. The ascending aorta is normal in size. The IVC is normal in size a nd collapses >50% with inspiration. PERICARDIAL EFFUSION There is no evidence of significant pericardial effusion. Critical Notification Critical Value: No <Conclusion> The systolic function is severely impaired. EF 30-35%. The septum, anterior and lateral montgomery are severely hypokinetic. Doppler and Color-flow revealed severe eccentric posteriorly directed mitral regurgitation. Doppler and Color Flow revealed mild tricuspid regurgitation. Estimated PAP 55 mmHg. Signed by : Sean Simons, Electronically Approved : 02/21/2021 15:25:34
--- NOTE | 2021-02-21 15:41 | PDOC2 ---
CONSULT Date of Consult Date of Consult DATE: 02/21/21 TIME: 15:40 Reason for Consult Reason for Consult: anemia Past Medical History Cardiovascular: CHF, Hyperlipidemia Pulmonary: No pertinent hx Heme/Onc: No pertinent hx Musculoskeletal: Osteoarthritis Rheumatologic: Fibromyalgia Renal/: No pertinent hx Endocrine: Diabetes Dermatology: No pertinent hx Family History Family History: High Cholestrol, Hypertension Social History No ALCOHOL: none Drugs: None Current Medications Current Medications Current Medications Morphine Sulfate (Morphine Sulfate) 3 mg PRN Q3HRS PRN IV PAIN; Start 02/20/21 at 05:15 Acetaminophen (Tylenol) 650 mg PRN Q6HRS PRN PO MILD PAIN / TEMP > 100.3'F; Start 02/20/21 at 05:15 Dextrose (Dextrose 50%-Water Syringe) 12.5 gm PRN Q15MIN PRN IV SEE COMMENTS; Start 02/20/21 at 05:15 Heparin Sodium/ Dextrose 250 ml @ 12.936 mls/ hr CONT PRN IV PER PROTOCOL Last administered on 02/21/21at 00:46; Start 02/20/21 at 05:15 Heparin Sodium (Porcine) (Heparin Sodium) 2,700 unit PRN Q6HRS PRN IV FOR UFH LEVEL LESS THAN 0.2; Start 02/20/21 at 05:15 Aspirin (Ecotrin) 81 mg DAILYWBKFT PO Last administered on 02/21/21at 07:44; Start 02/20/21 at 11:00 Metoprolol Tartrate (Lopressor) 25 mg 1X ONCE PO Last administered on 02/20/21at 10:59; Start 02/20/21 at 11:00; Stop 02/20/21 at 11:01; Status DC Metoprolol Tartrate (Lopressor) 25 mg BID PO Last administered on 02/21/21at 07:45; Start 02/20/21 at 21:00 Clopidogrel Bisulfate (Plavix) 600 mg 1X ONCE PO Last administered on 02/20/21at 10:58; Start 02/20/21 at 11:00; Stop 02/20/21 at 11:01; Status DC Clopidogrel Bisulfate (Plavix) 75 mg DAILYWBKFT PO Last administered on 02/21/21at 07:44; Start 02/21/21 at 08:00; Stop 02/21/21 at 10:20; Status DC Atorvastatin Calcium (Lipitor) 40 mg QHS PO Last administered on 02/20/21at 20:38; Start 02/20/21 at 21:00 Sodium Chloride (Normal Saline Flush) 3 ml QSHIFT PRN IV AFTER MEDS AND BLOOD DRAWS; Start 02/20/21 at 12:30 Ondansetron HCl (Zofran) 4 mg PRN Q4HRS PRN IV NAUSEA/VOMITING; Start 02/20/21 at 12:30 Acetaminophen (Tylenol) 650 mg PRN Q4HRS PRN GT TEMP OVER 100.4F OR MILD PAIN; Start 02/20/21 at 12:30 Sodium Monofluorophosphate (Fleet Adult) 133 ml PRN DAILY PRN [place] CONSTIPATION; Start 02/20/21 at 12:30 Albuterol Sulfate (Ventolin Neb Soln) 2.5 mg PRN Q4HRS PRN NEB SHORTNESS OF BREATH; Start 02/20/21 at 12:30 Guaifenesin (Robitussin) 200 mg PRN Q4HRS PRN PO COUGH; Start 02/20/21 at 12:30 Aspirin (Ecotrin) 81 mg DAILY PO ; Start 02/21/21 at 09:00; Status UNV Tamsulosin HCl (Flomax) 0.4 mg BID PO Last administered on 02/21/21at 07:45; Start 02/20/21 at 15:00 Non-Formulary Medication (Carvedilol ) 25 mg DAILY PO ; Start 02/21/21 at 09:00; Status UNV Non-Formulary Medication (Empagliflozin (Jardiance)) 25 mg DAILY PO ; Start 02/21/21 at 09:00; Status UNV Sodium Chloride 1,000 ml @ 100 mls/hr Q10H IV Last administered on 02/21/21at 02:38; Start 02/20/21 at 16:00; Stop 02/21/21 at 10:20; Status DC Nitroglycerin (Nitrostat) 0.4 mg PRN Q5MIN PRN SL CHEST PAIN Last administered on 02/21/21at 06:03; Start 02/21/21 at 06:00 Fluticasone Propionate (Flonase) 2 spray DAILY NS Last administered on 02/21/21a t 09:00; Start 02/21/21 at 10:00 Lidocaine HCl (Xylocaine-Mpf 1% 2ml Vial) 2 ml STK-MED ONCE .ROUTE ; Start 02/21/21 at 08:53; Stop 02/21/21 at 08:53; Status DC Iodixanol (Visipaque 320) 100 ml STK-MED ONCE .ROUTE ; Start 02/21/21 at 08:53; Stop 02/21/21 at 08:53; Status DC Heparin Sodium/ Sodium Chloride 1,500 ml @ As Directed STK-MED ONCE .ROUTE ; Start 02/21/21 at 08:53; Stop 02/21/21 at 08:53; Status DC Fentanyl Citrate (Fentanyl 2ml Vial) 100 mcg STK-MED ONCE .ROUTE ; Start 02/21/21 at 09:09; Stop 02/21/21 at 09:10; Status DC Midazolam HCl (Versed) 2 mg STK-MED ONCE .ROUTE ; Start 02/21/21 at 09:09; Stop 02/21/21 at 09:10; Status DC Heparin Sodium (Porcine) (Heparin Sodium) 10,000 unit STK-MED ONCE .ROUTE ; Start 02/21/21 at 09:10; Stop 02/21/21 at 09:10; Status DC Verapamil HCl (Verapamil) 5 mg STK-MED ONCE .ROUTE ; Start 02/21/21 at 09:10; Stop 02/21/21 at 09:10; Status DC Nitroglycerin (Nitroglycerin) 200 mcg STK-MED ONCE .ROUTE ; Start 02/21/21 at 09:10; Stop 02/21/21 at 09:10; Status DC Nitroglycerin (Nitroglycerin) 200 mcg 1X ONCE IART Last administered on 02/21/21at 09:30; Start 02/21/21 at 09:30; Stop 02/21/21 at 09:35; Status DC Verapamil HCl (Verapamil) 2.5 mg 1X ONCE IART Last administered on 02/21/21at 10:34; Start 02/21/21 at 09:30; Stop 02/21/21 at 09:35; Status DC Heparin Sodium (Porcine) (Heparin Sodium) 2,500 unit 1X ONCE IART Last administered on 02/21/21at 10:35; Start 02/21/21 at 09:30; Stop 02/21/21 at 09:35; Status DC Heparin Sodium/ Sodium Chloride (HEPARIN for ARTERIAL LINE FLUSH) 1,000 unit 1X ONCE IART Last administered on 02/21/21at 10:32; Start 02/21/21 at 09:30; Stop 02/21/21 at 09:35; Status DC Heparin Sodium/ Sodium Chloride (HEPARIN for ARTERIAL LINE FLUSH) 1,000 unit 1X ONCE IART Last administered on 02/21/21at 10:32; Start 02/21/21 at 09:30; Stop 02/21/21 at 09:35; Status DC Midazolam HCl (Versed) 2 mg 1X ONCE IV Last administered on 02/21/21at 10:33; Start 02/21/21 at 09:30; Stop 02/21/21 at 09:35; Status DC Fentanyl Citrate (Fentanyl 2ml Vial) 100 mcg 1X ONCE IV Last administered on 02/21/21at 10:34; Start 02/21/21 at 09:30; Stop 02/21/21 at 09:35; Status DC Iodixanol (Visipaque 320) 100 ml 1X ONCE IART Last administered on 02/21/21at 10:32; Start 02/21/21 at 09:30; Stop 02/21/21 at 09:35; Status DC Lidocaine HCl (Xylocaine-Mpf 1% 2ml Vial) 2 ml 1X ONCE INJ Last administered on 02/21/21at 10:35; Start 02/21/21 at 09:30; Stop 02/21/21 at 09:35; Status DC Info (CONTRAST GIVEN -- Rx MONITORING) 1 each PRN DAILY PRN MC SEE COMMENTS; Start 02/21/21 at 09:45; Stop 02/23/21 at 09:44 Lidocaine HCl (Xylocaine-Mpf 1% 2ml Vial) 2 ml 1X ONCE INJ ; Start 02/21/21 at 10:00; Stop 02/21/21 at 10:20; Status DC Furosemide (Lasix) 40 mg 1X ONCE IVP Last administered on 02/21/21at 11:41; Start 02/21/21 at 10:45; Stop 02/21/21 at 10:46; Status DC Active Scripts Active Reported Lipitor (Atorvastatin Calcium) 40 Mg Tablet 1 Tab PO QHS Adult Low Dose Aspirin Ec (Aspirin) 81 Mg Tablet.dr 1 Tab PO DAILY 30 Days Flomax (Tamsulosin Hcl) 0.4 Mg Cap.er.24h 1 Cap PO BID Carvedilol 25 Mg Tablet 25 Mg PO DAILY Metformin Hcl 1,000 Mg Tablet 1,000 Mg PO BIDWMEALS Jardiance (Empagliflozin) 25 Mg Tablet 25 Mg PO DAILY Allergies Allergies: Coded Allergies: Penicillins (Verified Allergy, Unknown, 02/20/21) procaine (Verified Allergy, Unknown, 02/20/21) syncope Vitals VITALS Vital Signs Date Time Temp Pulse Resp B/P (MAP) Pulse Ox O2 Delivery O2 Flow Rate FiO2 02/21/21 12:45 88 162/73 (102) 95 Nasal Cannula 3.0 02/21/21 10:34 16 02/21/21 06:36 98.6 98.6 Labs Labs Laboratory Tests Test 02/20/21 09:25 02/20/21 14:50 02/20/21 17:30 02/20/21 19:50 White Blood Count 12.4 x10^3/uL (4.0-11.0) Red Blood Count 2.51 x10^6/uL (4.30-5.70) Hemoglobin 7.8 g/dL (13.0-17.5) Hematocrit 23.2 % (39.0-53.0) Mean Corpuscular Volume 93 fL (79-100) Mean Corpuscular Hemoglobin 31 pg (25-35) Mean Corpuscular Hemoglobin Concent 34 g/dL (31-37) Red Cell Distribution Width 14.9 % (11.5-14.5) Platelet Count 251 x10^3/uL (140-400) Neutrophils (%) (Auto) 76 % (31-73) Lymphocytes (%) (Auto) 13 % (24-48) Monocytes (%) (Auto) 10 % (0-9) Eosinophils (%) (Auto) 1 % (0-3) Basophils (%) (Auto) 1 % (0-3) Neutrophils # (Auto) 9.4 x10^3/uL (1.8-7.7) Lymphocytes # (Auto) 1.6 x10^3/uL (1.0-4.8) Monocytes # (Auto) 1.2 x10^3/uL (0.0-1.1) Eosinophils # (Auto) 0.1 x10^3/uL (0.0-0.7) Basophils # (Auto) 0.1 x10^3/uL (0.0-0.2) Heparin Anti-Xa Act, Unfractionated 0.56 IU/mL (0.30-0.70) 0.76 IU/mL (0.30-0.70) Sodium Level 142 mmol/L (136-145) Potassium Level 4.7 mmol/L (3.5-5.1) Chloride Level 108 mmol/L (98-107) Carbon Dioxide Level 25 mmol/L (21-32) Anion Gap 9 (6-14) Blood Urea Nitrogen 26 mg/dL (8-26) Creatinine 1.7 mg/dL (0.7-1.3) Estimated GFR (Cockcroft-Gault) 38.7 BUN/Creatinine Ratio 15 (6-20) Glucose Level 178 mg/dL (70-99) Calcium Level 9.6 mg/dL (8.5-10.1) Total Bilirubin 0.4 mg/dL (0.2-1.0) Aspartate Amino Transf (AST/SGOT) 66 U/L (15-37) Alanine Aminotransferase (ALT/SGPT) 23 U/L (16-63) Alkaline Phosphatase 87 U/L (46-116) Troponin I Quantitative 16.206 ng/mL (0.000-0.055) 27.093 ng/mL (0.000-0.055) NH-Oec-T-Type Natriuretic Peptide 7845 pg/mL (0-449) Total Protein 6.1 g/dL (6.4-8.2) Albumin 3.2 g/dL (3.4-5.0) Albumin/Globulin Ratio 1.1 (1.0-1.7) Triglycerides Level 191 mg/dL (0-150) Cholesterol Level 200 mg/dL (0-200) LDL Cholesterol, Calculated 126 mg/dL (0-100) VLDL Cholesterol, Calculated 38 mg/dL (0-40) Non-HDL Cholesterol Calculated 164 mg/dL (0-129) HDL Cholesterol 36 mg/dL (40-60) Cholesterol/HDL Ratio 5.6 Glucose (Fingerstick) 207 mg/dL (70-99) Test 02/20/21 20:20 02/21/21 00:30 02/21/21 07:36 02/21/21 08:20 Troponin I Quantitative 31.930 ng/mL (0.000-0.055) Heparin Anti-Xa Act, Unfractionated 0.47 IU/mL (0.30-0.70) 0.36 IU/mL (0.30-0.70) Glucose (Fingerstick) 88 mg/dL (70-99) White Blood Count 12.3 x10^3/uL (4.0-11.0) Red Blood Count 2.44 x10^6/uL (4.30-5.70) Hemoglobin 7.6 g/dL (13.0-17.5) Hematocrit 22.6 % (39.0-53.0) Mean Corpuscular Volume 93 fL (79-100) Mean Corpuscular Hemoglobin 31 pg (25-35) Mean Corpuscular Hemoglobin Concent 34 g/dL (31-37) Red Cell Distribution Width 14.9 % (11.5-14.5) Platelet Count 265 x10^3/uL (140-400) Test 02/21/21 08:36 02/21/21 11:52 02/21/21 15:15 Glucose (Fingerstick) 162 mg/dL (70-99) 149 mg/dL (70-99) Red Blood Count 2.51 x10^6/uL (4.30-5.70) Absolute Reticulocyte Count 0.100 x10^6/uL (0.020-0.120) Percent Reticulocyte Count 4.0 % (0.5-2.3) Immature Reticulocyte Fraction 0.59 (0.20-0.60) Laboratory Tests Test 02/20/21 17:30 02/20/21 19:50 02/20/21 20:20 02/21/21 00:30 Heparin Anti-Xa Act, Unfractionated 0.76 IU/mL (0.30-0.70) 0.47 IU/mL (0.30-0.70) Glucose (Fingerstick) 207 mg/dL (70-99) Troponin I Quantitative 31.930 ng/mL (0.000-0.055) Test 02/21/21 07:36 02/21/21 08:20 02/21/21 08:36 02/21/21 11:52 Glucose (Fingerstick) 88 mg/dL (70-99) 162 mg/dL (70-99) 149 mg/dL (70-99) White Blood Count 12.3 x10^3/uL (4.0-11.0) Red Blood Count 2.44 x10^6/uL (4.30-5.70) Hemoglobin 7.6 g/dL (13.0-17.5) Hematocrit 22.6 % (39.0-53.0) Mean Corpuscular Volume 93 fL (79-100) Mean Corpuscular Hemoglobin 31 pg (25-35) Mean Corpuscular Hemoglobin Concent 34 g/dL (31-37) Red Cell Distribution Width 14.9 % (11.5-14.5) Platelet Count 265 x10^3/uL (140-400) Heparin Anti-Xa Act, Unfractionated 0.36 IU/mL (0.30-0.70) Test 02/21/21 15:15 Red Blood Count 2.51 x10^6/uL (4.30-5.70) Absolute Reticulocyte Count 0.100 x10^6/uL (0.020-0.120) Percent Reticulocyte Count 4.0 % (0.5-2.3) Immature Reticulocyte Fraction 0.59 (0.20-0.60) Assessment/Plan Assessment/Plan Anemia- most likely secondary to chronic disease with normocytic indices Rec Retic/B12/iron stores await heart stenting with anticoagulation Full note dictated BEATRIZ PTAINO MD Feb 21, 2021 15:41
[2021-02-21 18:31] LABS: BILIRUBIN,URINE NEGATIVE (NEG); CLARITY,URINE CLEAR; COLOR,URINE YELLOW; NITRITE,URINE NEGATIVE (NEG); PROTEIN,URINE NEGATIVE (NEG-TRACE); UROBILINOGEN,URINE 0.2 mg/dL (0.2 mg/dL)
[2021-02-21 18:48] LABS: BACTERIA,URINE 0 /HPF (0-FEW); HYALINE CASTS, URINE OCCASIONAL /HPF; RBC,URINE 0 /HPF (0-2); WBC,URINE 0 /HPF (0-4)
[2021-02-21] MEDS: ATORVASTATIN CALCIUM 40 MG TABLET. PO SCH (20:23)
--- NOTE | 2021-02-21 22:33 | CONS ---
DATE OF CONSULTATION: 02/21/2021 GASTROENTEROLOGY CONSULTATION REFERRING PHYSICIAN: Praveen Patino MD. HISTORY OF PRESENT ILLNESS: This is an 85-year-old male who has past medical history significant for organic heart disease, CHF, hyperlipidemia, and anemia, who is admitted to [facility] with a non-STEMI, complicated by dyspnea. The patient is undergoing heart catheterization today, which revealed 3-vessel disease, heart stents are planned in the a.m. The patient has already been noted to have a normochromic normocytic anemia. There is no dysphagia, odynophagia, melena, hematochezia, hematemesis, change in weight. He has never undergone upper endoscopy or colonoscopy. He is otherwise in good health until recently. Denies any additional complaints. PAST MEDICAL HISTORY: CHF, hypertension, hyperlipidemia. ALLERGIES: PENICILLIN, PROCAINE. MEDICATIONS: Include Flonase, nitroglycerin, Lipitor, Lopressor, Robitussin, aspirin, and heparin. SOCIAL HISTORY: Retired. Does not drink or smoke. FAMILY HISTORY: Noncontributory. REVIEW OF SYSTEMS: Per records. PAST SURGERIES: Noncontributory. PHYSICAL EXAMINATION: GENERAL: Reveals a well-nourished, well-developed male. VITAL SIGNS: Temperature is afebrile, pulse 80, respiratory rate is 20, blood pressure 162/73. HEENT: Normocephalic, atraumatic head. Pupils and extraocular muscles not tested. Sclerae are anicteric. NECK: Supple. LUNGS: Clear. CARDIAC: S1, S2, without S3, S4 or appreciable murmur. ABDOMEN: Reveals a soft abdomen, normal bowel sounds, appreciable hepatosplenomegaly. EXTREMITIES: Reveals no cyanosis, clubbing or edema. LABORATORY DATA: Hemoglobin 7.6, hematocrit 22.6, white count 12.3, platelet count is 265,000. Sodium is 142, total protein 6.1, albumin 3.2, calcium 9.6, glucose 178, BUN 26, total bilirubin 0.4, alkaline phosphatase 87, ALT of 23, AST of 66. ASSESSMENT AND PLAN: Normochromic normocytic anemia, most likely secondary to chronic disease. Differential does include pernicious anemia, iron deficiency, malignancy of colon and stomach and/or esophagus AVMs, polyps. The patient will need to undergo his heart stenting with his recent [place] and have full recovery from this before any elective endoscopic procedures would even be considered. I would like to thank the interval Dr. Patino for allowing us to consult and participate in this patient's care. ARAM DR: Jourdan TID: [id number] CC: PRAVEEN PATINO MD
[2021-02-22] VITALS (11 sets, daily range): BP systolic 95–122; BP diastolic 49–95
[2021-02-22 01:03] LABS: BASO # 0.1 x10^3/uL (0.0-0.2); BASO % 1 % (0-3); EOS % 0 % (0-3); LYMPH # 0.6 x10^3/uL (1.0-4.8); LYMPH % 5 % (24-48); MEAN CORPUSCULAR HEMOGLOBIN 31 pg (25-35); MEAN CORPUSCULAR HGB CONC 34 g/dL (31-37); MEAN CORPUSCULAR VOLUME 92 fL (79-100); MONO % 8 % (0-9); NEUT # 10.5 x10^3/uL (1.8-7.7); NEUT % 86 % (31-73); PLATELET COUNT 249 x10^3/uL (140-400); RED BLOOD COUNT 2.15 x10^6/uL (4.30-5.70); RED CELL DISTRIBUTION WIDTH 14.8 % (11.5-14.5); WHITE BLOOD COUNT 12.2 x10^3/uL (4.0-11.0)
[2021-02-22 01:06] LABS: HEMATOCRIT 19.7 % (39.0-53.0); HEMOGLOBIN 6.7 g/dL (13.0-17.5)
[2021-02-22 01:22] LABS: CALCIUM 8.8 mg/dL (8.5-10.1); CREATININE 1.9 mg/dL (0.7-1.3)
--- NOTE | 2021-02-22 01:35 | RAD ---
XR CHEST 1V Clinical Indication: Reason: new apneic episodes, change in pt condition Comparison: AP chest, 2 days ago. Findings: Atherosclerotic aortic arch. Cardiac size is stable. Diffuse interstitial and alveolar opacities are without significant change. There are small bilateral pleural effusions. There is no pneumothorax. Ar thropathy of the right shoulder. IMPRESSION: Stable chest findings. Electronically signed by: Fred Flores MD (02/22/2021 1:33 AM) [facility]AM[facility]
[2021-02-22 03:37] LABS: BASE EXCESS COOX -6 mmol/L (-3-3); HCO3 COOX 17 mmol/L (21-28); METHEMOGLOBIN 0.2 % (0.0-1.9); OXYHEMOGLOBIN 97.8 %; PCO2 COOX 24 mmHg (35-46); PO2 COOX 155 mmHg (65-108); SAT O2 COOX 98 % (92-99)
[2021-02-22 04:25] LABS: BASO % 0 % (0-3); EOS % 0 % (0-3); HEMATOCRIT 24.7 % (39.0-53.0); LYMPH # 0.8 x10^3/uL (1.0-4.8); LYMPH % 6 % (24-48); MEAN CORPUSCULAR HEMOGLOBIN 31 pg (25-35); MEAN CORPUSCULAR HGB CONC 32 g/dL (31-37); MEAN CORPUSCULAR VOLUME 94 fL (79-100); MONO # 1.2 x10^3/uL (0.0-1.1); MONO % 10 % (0-9); NEUT # 10.7 x10^3/uL (1.8-7.7); NEUT % 84 % (31-73); PLATELET COUNT 229 x10^3/uL (140-400); RED BLOOD COUNT 2.63 x10^6/uL (4.30-5.70); RED CELL DISTRIBUTION WIDTH 15.8 % (11.5-14.5); WHITE BLOOD COUNT 12.8 x10^3/uL (4.0-11.0)
[2021-02-22 04:35] LABS: % LYMPHS 7 % (24-48); % MONOS 4 % (0-10); % SEGS 89 % (35-66); PLT ESTIMATE ADEQUATE (ADEQUATE); POLYCHROMASIA SLIGHT
[2021-02-22] MEDS ORDERED: FUROSEMIDE 40 MG/4 ML VIAL. IVP ONE (04:45)
--- NOTE | 2021-02-22 06:13 | NUR ---
PT A&OX4 AT SHIFT CHANGE DURING ASSESSMENT, CONSISTENT FOR PATIENT. AT APPROX 2200, PT BEGAN TO PULL AT TELE LEADS, NASAL CANNULA, SPO2 PROBE, AND IV LINES. PT WAS NOTICEABLY CONFUSED, PALE, DIAPHORETIC, AND DISPLAYED AN IRREGULAR PATTERN OF BREATHING. PT EXHIBITED APNEIC EPISODES WHILE AWAKE LASTING UP TO 25 SEC AND SPO2 WOULD DROP TO LOW TO MID 70S. DURING THIS TIME, PT'S HR WOULD INCREASE TO 110S AND DECREASE TO 50S SEVERAL TIMES WITH JUNCTIONAL BEATS. HOSPITALIST PAGED, ORDERS RECEIVED FOR LABS AND CHEST X-RAY. HGB AND HCT WERE CRITICAL, 2 UNITS PRBC CROSS MATCHED. 1ST UNIT STARTED AND PT MOVED TO NEW ROOM CLOSER TO NURSE'S STATION. AT APPROX 0315, PT'S SPO2 MONITOR WAS NOT READING. RN WENT TO CHECK ON PT, RN WITNESSED PATIENT PANTING, THEN AGONAL BREATHING, HEART RATE DROPPED TO 30S AND APPEARED TO BE JUNCTIONAL. BREATHING THEN STOPPED AND CODE BLUE WAS CALLED. RN WENT TO GET PORTABLE COMPUTER AND CODE CART, PT WAS AWAKE UPON RETURN TO ROOM. LABS AND ABG'S DRAWN, PT PLACED ON BIPAP, EKG PERFORMED, ATTACHER PAGED. ORDERS RECEIVED TO STOP HEPARIN, CONTINUE BLOOD ADMINISTRATION, AND GIVE 1 DOSE 40MG IVP LASIX BETWEEN UNITS OF PRBC. MITTS PLACED AND GONZÁLES INSERTED AT THIS TIME. PT CONTINUES TO BE CONFUSED AND BECAME COMBATIVE, SOME MOTTLING NOTED AROUND CHEST AND UPPER ARMS, ALL EXTREMITIES COLD TO TOUCH, BUT PT IS ABLE TO MOVE ALL EXTREMITIES INDEPENDENTLY, NO DECREASE IN STRENGTH. CARDIOLOGY TO REASSESS DURING DAY SHIFT.
[2021-02-22] MEDS ORDERED: LIDOCAINE 1% PF 2 ML VIAL. ONE (08:10)
[2021-02-22] MEDS ORDERED: HEPARIN for ARTERIAL LINE 1,500 ML ONE (08:10)
[2021-02-22] MEDS ORDERED: IODIXANOL 320 MG/ML 100 ML VIAL. ONE (08:10)
[2021-02-22] MEDS: FLUTICASONE 50MCG/NASAL SPRAY 16GM BOTTLE. NS SCH (09:00)
[2021-02-22] MEDS ORDERED: NITROGLYCERIN 200 MCG/2 ML SYRINGE FOR CATH/VASC LAB. ONE (10:27)
[2021-02-22] MEDS ORDERED: fentaNYL PF VIAL 100 MCG/2 ML VIAL ONE (10:27)
[2021-02-22] MEDS ORDERED: VERAPAMIL 5 MG/2 ML VIAL. ONE (10:27)
[2021-02-22] MEDS ORDERED: TIROFIBAN 5MG -0.9% NS 0 ML IV ONE (10:27)
[2021-02-22] MEDS ORDERED: HEPARIN for IV BOLUS 10,000 UNIT/10 ML VIAL. ONE (10:27)
[2021-02-22] MEDS ORDERED: MIDAZOLAM HCL/PF 5 MG/5 ML VIAL. ONE (10:27)
--- NOTE | 2021-02-22 11:24 | PDOC ---
Date of Service: DATE: 02/22/21 TIME: 11:18 Subjective: Subjective: Wishes they would hurry things up because he's been waiting. No previous scopes. Denies GI symptoms including obvious bleeding. Objective: Objective: Events overnight noted. Vital Signs: Vital Signs Date Time Temp Pulse Resp B/P (MAP) Pulse Ox O2 Delivery O2 Flow Rate FiO2 02/22/21 07:00 97.5 93 20 119/95 (103) 100 Nasal Cannula 4.0 97.5 Labs: Laboratory Tests Test 02/21/21 11:52 02/21/21 15:15 02/21/21 16:55 02/21/21 20:32 Glucose (Fingerstick) 149 mg/dL 174 mg/dL Red Blood Count 2.51 x10^6/uL Absolute Reticulocyte Count 0.100 x10^6/uL Percent Reticulocyte Count 4.0 % Immature Reticulocyte Fraction 0.59 Heparin Anti-Xa Act, Unfractionated 0.28 IU/mL Iron Level 32 ug/dL Total Iron Binding Capacity 281 ug/dL Iron Saturation 11 % Vitamin B12 Level 232 pg/mL Urine Collection Type Unknown Urine Color Yellow Urine Clarity Clear Urine pH 5.0 Urine Specific [place] 1.015 Urine Protein Negative mg/dL Urine Glucose (UA) Negative mg/dL Urine Ketones (Stick) Negative mg/dL Urine Blood Negative Urine Nitrite Negative Urine Bilirubin Negative Urine Urobilinogen Dipstick 0.2 mg/dL Urine Leukocyte Esterase Negative Urine RBC 0 /HPF Urine WBC 0 /HPF Urine Bacteria 0 /HPF Urine Hyaline Casts Occasional /HPF Test 02/21/21 22:00 02/22/21 00:47 02/22/21 03:19 02/22/21 03:33 Heparin Anti-Xa Act, Unfractionated 0.34 IU/mL White Blood Count 12.2 x10^3/uL Red Blood Count 2.15 x10^6/uL Hemoglobin 6.7 g/dL Hematocrit 19.7 % Mean Corpuscular Volume 92 fL Mean Corpuscular Hemoglobin 31 pg Mean Corpuscular Hemoglobin Concent 34 g/dL Red Cell Distribution Width 14.8 % Platelet Count 249 x10^3/uL Neutrophils (%) (Auto) 86 % Lymphocytes (%) (Auto) 5 % Monocytes (%) (Auto) 8 % Eosinophils (%) (Auto) 0 % Basophils (%) (Auto) 1 % Neutrophils # (Auto) 10.5 x10^3/uL Lymphocytes # (Auto) 0.6 x10^3/uL Monocytes # (Auto) 1.0 x10^3/uL Eosinophils # (Auto) 0.0 x10^3/uL Basophils # (Auto) 0.1 x10^3/uL Segmented Neutrophils % 89 % Lymphocytes % 7 % Monocytes % 4 % Platelet Estimate Adequate Polychromasia Slight Sodium Level 141 mmol/L Potassium Level 4.0 mmol/L Chloride Level 105 mmol/L Carbon Dioxide Level 23 mmol/L Anion Gap 13 Blood Urea Nitrogen 32 mg/dL Creatinine 1.9 mg/dL Estimated GFR (Cockcroft-Gault) 34.0 Glucose Level 237 mg/dL Calcium Level 8.8 mg/dL Glucose (Fingerstick) 252 mg/dL O2 Saturation 98 % Arterial Blood pH 7.48 Arterial Blood pCO2 at Patient Temp 24 mmHg Arterial Blood pO2 at Patient Temp 155 mmHg Arterial Blood HCO3 17 mmol/L Arterial Blood Base Excess -6 mmol/L Oxyhemoglobin 97.8 % Methemoglobin 0.2 % Carbon Monoxide, Quantitative 0.3 % FiO2 60 Test 02/22/21 04:10 02/22/21 08:18 White Blood Count 12.8 x10^3/uL Red Blood Count 2.63 x10^6/uL Hemoglobin 8.0 g/dL Hematocrit 24.7 % Mean Corpuscular Volume 94 fL Mean Corpuscular Hemoglobin 31 pg Mean Corpuscular Hemoglobin Concent 32 g/dL Red Cell Distribution Width 15.8 % Platelet Count 229 x10^3/uL Neutrophils (%) (Auto) 84 % Lymphocytes (%) (Auto) 6 % Monocytes (%) (Auto) 10 % Eosinophils (%) (Auto) 0 % Basophils (%) (Auto) 0 % Neutrophils # (Auto) 10.7 x10^3/uL Lymphocytes # (Auto) 0.8 x10^3/uL Monocytes # (Auto) 1.2 x10^3/uL Eosinophils # (Auto) 0.0 x10^3/uL Basophils # (Auto) 0.0 x10^3/uL Heparin Anti-Xa Act, Unfractionated 0.48 IU/mL Glucose (Fingerstick) 186 mg/dL Imaging: Cardiac Cath 02/21 Conclusion 1. Acute systolic and diastolic heart failure, LVEDP 31 mmHg 2. 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 I had a long discussion with the patient and his regarding various options for treatment. We discussed the possibility of bypass surgery as well as complex PCI. Given his severe vascular disease he would be high risk for PCI. After thorough discussion the patient and family wish to proceed with PCI. I did offer the patient and his the opportunity to discuss their case with the cardiac surgeon but they had refused and the patient is not interested in cardiac surgery at this time. 2. We will plan for continuation of aspirin, Plavix and heparin drip. Optimize hemodynamic status and plan for high risk complex PCI in the next 24 to 48 hours. Echo 02/21 <Conclusion> The systolic function is severely impaired. EF 30-35%. The septum, anterior and lateral montgmoery are severely hypokinetic. Doppler and Color-flow revealed severe eccentric posteriorly directed mitral regurgitation. Doppler and Color Flow revealed mild tricuspid regurgitation. Estimated PAP 55 mmHg. PE: GEN: NAD LUNGS: clear, NC 4L HEART: borderline tachycardic ABD: S/ND/NT NEURO/PSYCH: A & O 3 - a little confused? A/P: NSTEMI, CAD - plans for stents today ?CKD/GONZÁLEZ? Anemia - iron and B12 deficient - no obvious bleeding, did require transfusion(s) -- Plans as above. Transfuse as needed. Not an ideal candidate for scopes. Empiric acid-sr technical sales consultant. Add B12. ?IV iron Justicifation of Admission Dx: Justifications for Admission: Justification of Admission Dx: Yes SD: Acute NSTEMI ESTIVEN BENTLEY Feb 22, 2021 11:24
[2021-02-22] MEDS: TAMSULOSIN 0.4 MG CAP.ER.24H. PO SCH ×2 (11:34→19:47)
[2021-02-22] MEDS: ASPIRIN ENTERIC COATED 81 MG TABLET.DR. PO SCH (11:34)
[2021-02-22] MEDS: METOPROLOL TART IMMED RELEASE 25 MG TABLET. PO SCH ×2 (11:35→19:47)
--- NOTE | 2021-02-22 11:55 | NUR ---
SS following for discharge planning. SS reviewed pt chart and discussed with pt RN. Pt is from home with spouse and is currently requiring oxygen at four liters nasal canula. COVID19 negative. Pt had heart cath on 02/21/2021. Pt received blood last night and has several blockages. Per Dr. Scherer, pt needs transfer to for high risk complex PCI. SS contacted transfer team, , and made request for transfer. SS spoke with Tierra, , in the transfer team. Face sheet and clinical phoned and faxed to fax# [phone], as requested. Images clouded to . Packet and transfer form on the chart. SS currently awaiting acceptance decision at this time. SS will continue to follow for discharge planning. Addendum: 02/22/21 at 1436 by MIREYA GALINDO SS received phone contact from . Pt accepted at for transfer. Accepting physician, Dr. Preston. SS currently awaiting bed assignment at this time. Packet, ambulance form, and transfer form on the chart. Addendum: 02/22/21 at 1448 by MIREYA GALINDO SS received phone contact from . Bed assignment [id number]. Report# [phone]. Packet, ambulance form, and transfer form placed on chart. Pt will discharge and transfer to at 1800 vis [facility] ambulance. Tierra in transfer center, , notified. Pt's RN notified.
[2021-02-22] MEDS ORDERED: PANTOPRAZOLE 40 MG TABLET.DR. PO SCH (12:00)
[2021-02-22] MEDS ORDERED: CYANOCOBALAMIN (VITAMIN B-12) 1,000 MCG/ML VIAL. IM SCH (12:00)
[2021-02-22] MEDS ORDERED: CLOPIDOGREL BISULFATE 75 MG TABLET PO SCH (13:00)
--- NOTE | 2021-02-22 14:48 | PDOC ---
[employer] PROGRESS NOTE Date of Service DOS: DATE: 02/22/21 TIME: 14:46 Chief Complaint Chief Complaint Assessment/Plan Assessment/Plan IMPRESSION Acute NSTEMI Acute hypoxic resp failure OBESITY Visual impairment long standing DIABETES plan Transfer to for high risk PCI D/W IN ROOM Justifications for Admission Other Justification History of Present Illness History of Present Illness 02/22 Patient seen and evaluated at bedside. This angio yesterday revealing the patient PCI. Given comorbidities would be high risk PCI thus transferring to for this procedure. Patient has been accepted and transporting around 6 PM. Identification/Chief Complaint Chief Complaint SHORTNESS OF BREATH History of Present Illness History of Present Illness 85 YR OLD MALE, TRANFER FOR [facility] ER HERE DUE TO NSTEMI, ELEVATED TROPONIN Past Medical History Cardiovascular: CHF, Hyperlipidemia Pulmonary: No pertinent hx Heme/Onc: No pertinent hx Musculoskeletal: Osteoarthritis Rheumatologic: Fibromyalgia Renal/: No pertinent hx Endocrine: Diabetes Dermatology: No pertinent hx Family History Family History: High Cholestrol, Hypertension Social History Smoke: No ALCOHOL: none Drugs: None Current Medications Current Medications Current Medications Morphine Sulfate (Morphine Sulfate) 3 mg PRN Q3HRS PRN IV PAIN; Start 02/20/21 at 05:15 Acetaminophen (Tylenol) 650 mg PRN Q6HRS PRN PO MILD PAIN / TEMP > 100.3'F; Start 02/20/21 at 05:15 Dextrose (Dextrose 50%-Water Syringe) 12.5 gm PRN Q15MIN PRN IV SEE COMMENTS; Start 02/20/21 at 05:15 Heparin Sodium/ Dextrose 250 ml @ 12.936 mls/ hr CONT PRN IV PER PROTOCOL; Start 02/20/21 at 05:15 Heparin Sodium (Porcine) (Heparin Sodium) 2,700 unit PRN Q6HRS PRN IV FOR UFH LEVEL LESS THAN 0.2; Start 02/20/21 at 05:15 Aspirin (Ecotrin) 81 mg DAILYWBKFT PO ; Start 02/20/21 at 11:00 Metoprolol Tartrate (Lopressor) 25 mg 1X ONCE PO ; Start 02/20/21 at 11:00; Stop 02/20/21 at 11:01 Metoprolol Tartrate (Lopressor) 25 mg BID PO ; Start 02/20/21 at 21:00 Clopidogrel Bisulfate (Plavix) 600 mg 1X ONCE PO ; Start 02/20/21 at 11:00; Stop 02/20/21 at 11:01 Clopidogrel Bisulfate (Plavix) 75 mg DAILYWBKFT PO ; Start 02/21/21 at 08:00 Atorvastatin Calcium (Lipitor) 40 mg QHS PO ; Start 02/20/21 at 21:00 Active Scripts Active Reported Lipitor (Atorvastatin Calcium) 40 Mg Tablet 1 Tab PO QHS Adult Low Dose Aspirin Ec (Aspirin) 81 Mg Tablet.dr 1 Tab PO DAILY 30 Days Flomax (Tamsulosin Hcl) 0.4 Mg Cap.er.24h 1 Cap PO BID Carvedilol 25 Mg Tablet 25 Mg PO DAILY Metformin Hcl 1,000 Mg Tablet 1,000 Mg PO BIDWMEALS Jardiance (Empagliflozin) 25 Mg Tablet 25 Mg PO DAILY Allergies Allergies: Coded Allergies: Penicillins (Verified Allergy, Unknown, 02/20/21) procaine (Verified Allergy, Unknown, 02/20/21) syncope ROS Review of System 14 PT ROS OTHERWISE NEG General: No: Chills, Night Sweats, Fatigue, Malaise, Appetite, Other PSYCHOLOGICAL ROS: No: Anxiety, Behavioral Disorder, Concentration difficultie, Decreased libido, Depression, Disorientation, Hallucinations, Hostility, Irritablity, Memory difficulties, Mood Swings, Obsessive thoughts, Physical abuse, Sexual abuse, Sleep disturbances, Suicidal ideation, Other Eyes: Yes Decreased vision; No Blurry vision, No Double vision, No Dry eyes, No Excessive tearing, No Eye Pain, No Itchy Eyes, No Loss of vision, No Photophobia, No Scotomata, No Uses contacts, No Uses glasses, No Other HEENT: No: Heacaches, Visual Changes, Hearing change, Nasal congestion, Nasal discharge, Oral lesions, Sinus pain, Sore Throat, Epistaxis, Sneezing, Snoring, Tinnitus, Vertigo, Vocal changes, Other ALLERGY AND IMMUNOLOGY: YES: Hives; No: Insect Bite Sensitivity, Itchy/Watery Eyes, Nasal Congestion, Post Nasal Drip, Seasonal Allergies, Other Hematological and Lymphatic: No: Bleeding Problems, Blood Clots, Blood Transfusions, Brusing, Night Sweats, Pallor, Swollen Lymph Nodes, Other ENDOCRINE: No: Breast Changes, Galactorrhea, Hair Pattern Changes, Hot Flashes, Malaise/lethargy, Mood Swings, Palpitations, Polydipsia/polyuria, Skin Changes, Temperature Intolerance, Unexpected Weight Changes, Other Breast: No New/Changing Breast Lumps, No Nipple changes, No Nipple discharge, No Other Respiratory: No: Cough, Hemoptysis, Orthopnea, Pleuritic Pain, Shortness of breath, SOB with excertion, Sputum Changes, Stridor, Tachypnea, Wheezing, Other Cardiovascular: yes Chest Pain; No Palpitations, No Orthopnea, No Paroxysmal Noc. Dyspnea, No Edema, No Lt Headedness, No Other Gastrointestinal: No Nausea, No Vomiting, No Abdominal Pain, No Diarrhea, No Constipation, No Melena, No Hematochezia, No Other Genitourinary: No Dysuria, No Frequency, No Incontinence, No Hematuria, No Retention, No Discharge, No Urgency, No Pain, No Flank Pain, No Other, No , No , No , No , No , No , No Musculoskeletal: Yes Joint Stiffness; No Gait Disturbance, No Joint Pain, No Joint Swelling, No Muscle Pain, No Muscular Weakness, No Pain In:, No Swelling In:, No Other Neurological: No Behavorial Changes, No Bowel/Bladder ControlChng, No Confusion, No Dizziness, No Gait Disturbance, No Headaches, No Impaired Coord/balance, No Memory Loss, No Numbness/Tingling, No Seizures, No Speech Problems, No Tremors, No Visual Changes, No Weakness, No Other Skin: No Dry Skin, No Eczema, No Hair Changes, No Lumps, No Mole Changes, No Mottling, No Nail Changes, No Pruritus, No Rash, No Skin Lesion Changes, No Other, No Acne Vitals/I&O Vitals/I&O: Vital Signs Date Time Temp Pulse Resp B/P (MAP) Pulse Ox O2 Delivery O2 Flow Rate FiO2 02/22/21 11:35 98 02/22/21 11:00 97.8 18 120/78 (92) 93 Nasal Cannula 4.0 97.8 I & O 02/21/21 02/21/21 02/22/21 15:00 23:00 07:00 Intake Total 0 ml 0 ml Output Total 400 ml 100 ml 475 ml Balance -400 ml -100 ml -475 ml Physical Exam General: Alert, Oriented X3, Cooperative, No acute distress Heart: Regular rate Lungs: Clear Abdomen: Normal bowel sounds, Soft, No tenderness Extremities: No clubbing, No cyanosis Labs Labs: Laboratory Tests Test 02/21/21 15:15 02/21/21 16:55 02/21/21 20:32 02/21/21 22:00 Red Blood Count 2.51 x10^6/uL (4.30-5.70) Absolute Reticulocyte Count 0.100 x10^6/uL (0.020-0.120) Percent Reticulocyte Count 4.0 % (0.5-2.3) Immature Reticulocyte Fraction 0.59 (0.20-0.60) Heparin Anti-Xa Act, Unfractionated 0.28 IU/mL (0.30-0.70) 0.34 IU/mL (0.30-0.70) Iron Level 32 ug/dL (65-175) Total Iron Binding Capacity 281 ug/dL (250-450) Iron Saturation 11 % (15-34) Vitamin B12 Level 232 pg/mL (247-911) Urine Collection Type Unknown Urine Color Yellow Urine Clarity Clear Urine pH 5.0 (<5.0-8.0) Urine Specific [place] 1.015 (1.000-1.030) Urine Protein Negative mg/dL (NEG-TRACE) Urine Glucose (UA) Negative mg/dL (NEG) Urine Ketones (Stick) Negative mg/dL (NEG) Urine Blood Negative (NEG) Urine Nitrite Negative (NEG) Urine Bilirubin Negative (NEG) Urine Urobilinogen Dipstick 0.2 mg/dL (0.2 mg/dL) Urine Leukocyte Esterase Negative (NEG) Urine RBC 0 /HPF (0-2) Urine WBC 0 /HPF (0-4) Urine Bacteria 0 /HPF (0-FEW) Urine Hyaline Casts Occasional /HPF Glucose (Fingerstick) 174 mg/dL (70-99) Test 02/22/21 00:47 02/22/21 03:19 02/22/21 03:33 02/22/21 04:10 White Blood Count 12.2 x10^3/uL (4.0-11.0) 12.8 x10^3/uL (4.0-11.0) Red Blood Count 2.15 x10^6/uL (4.30-5.70) 2.63 x10^6/uL (4.30-5.70) Hemoglobin 6.7 g/dL (13.0-17.5) 8.0 g/dL (13.0-17.5) Hematocrit 19.7 % (39.0-53.0) 24.7 % (39.0-53.0) Mean Corpuscular Volume 92 fL (79-100) 94 fL (79-100) Mean Corpuscular Hemoglobin 31 pg (25-35) 31 pg (25-35) Mean Corpuscular Hemoglobin Concent 34 g/dL (31-37) 32 g/dL (31-37) Red Cell Distribution Width 14.8 % (11.5-14.5) 15.8 % (11.5-14.5) Platelet Count 249 x10^3/uL (140-400) 229 x10^3/uL (140-400) Neutrophils (%) (Auto) 86 % (31-73) 84 % (31-73) Lymphocytes (%) (Auto) 5 % (24-48) 6 % (24-48) Monocytes (%) (Auto) 8 % (0-9) 10 % (0-9) Eosinophils (%) (Auto) 0 % (0-3) 0 % (0-3) Basophils (%) (Auto) 1 % (0-3) 0 % (0-3) Neutrophils # (Auto) 10.5 x10^3/uL (1.8-7.7) 10.7 x10^3/uL (1.8-7.7) Lymphocytes # (Auto) 0.6 x10^3/uL (1.0-4.8) 0.8 x10^3/uL (1.0-4.8) Monocytes # (Auto) 1.0 x10^3/uL (0.0-1.1) 1.2 x10^3/uL (0.0-1.1) Eosinophils # (Auto) 0.0 x10^3/uL (0.0-0.7) 0.0 x10^3/uL (0.0-0.7) Basophils # (Auto) 0.1 x10^3/uL (0.0-0.2) 0.0 x10^3/uL (0.0-0.2) Segmented Neutrophils % 89 % (35-66) Lymphocytes % 7 % (24-48) Monocytes % 4 % (0-10) Platelet Estimate Adequate (ADEQUATE) Polychromasia Slight Sodium Level 141 mmol/L (136-145) Potassium Level 4.0 mmol/L (3.5-5.1) Chloride Level 105 mmol/L (98-107) Carbon Dioxide Level 23 mmol/L (21-32) Anion Gap 13 (6-14) Blood Urea Nitrogen 32 mg/dL (8-26) Creatinine 1.9 mg/dL (0.7-1.3) Estimated GFR (Cockcroft-Gault) 34.0 Glucose Level 237 mg/dL (70-99) Calcium Level 8.8 mg/dL (8.5-10.1) Glucose (Fingerstick) 252 mg/dL (70-99) O2 Saturation 98 % (92-99) Arterial Blood pH 7.48 (7.35-7.45) Arterial Blood pCO2 at Patient Temp 24 mmHg (35-46) Arterial Blood pO2 at Patient Temp 155 mmHg (65-108) Arterial Blood HCO3 17 mmol/L (21-28) Arterial Blood Base Excess -6 mmol/L (-3-3) Oxyhemoglobin 97.8 % Methemoglobin 0.2 % (0.0-1.9) Carbon Monoxide, Quantitative 0.3 % (0.0-1.9) FiO2 60 Heparin Anti-Xa Act, Unfractionated 0.48 IU/mL (0.30-0.70) Test 02/22/21 08:18 02/22/21 11:42 Glucose (Fingerstick) 186 mg/dL (70-99) 175 mg/dL (70-99) Comment Review of Relevant I have reviewed the following items riky (where applicable) has been applied. Medications: Current Medications Medications (Trade) Dose Ordered Sig/Royce Route PRN Reason Start Time Stop Time Status Last Admin Dose Admin Olanzapine (ZyPREXA ZYDIS) 5 mg PRN BID PRN PO ANXIETY / AGITATION 02/21/21 20:15 02/21/21 20:23 Furosemide (Lasix) 40 mg 1X ONCE IVP 02/22/21 04:45 02/22/21 04:46 DC 02/22/21 04:53 Cyanocobalamin (Vitamin B-12 Inj) 1,000 mcg DAILY IM 02/22/21 12:00 02/22/21 13:22 Pantoprazole Sodium (Protonix) 40 mg DAILYAC PO 02/22/21 12:00 02/22/21 13:21 Clopidogrel Bisulfate (Plavix) 75 mg DAILYWBKFT PO 02/22/21 13:00 02/22/21 13:21 Justifications for Admission Other Justification NSTEMI MILES BOURGEOIS MD Feb 22, 2021 14:48
--- NOTE | 2021-02-22 18:05 | PDOC ---
CARDIOLOGY PROGRESS NOTE SUBJECTIVE: Overnight, patient had hypoxic resp failure. Anemia noted and given 1 unit PRBC's. This morning he is a/o x3. Denies any chest pain. Does have dyspnea. OBJECTIVE: Vital Signs/I&O: Vital Signs Date Time Temp Pulse Resp B/P (MAP) Pulse Ox O2 Delivery O2 Flow Rate FiO2 02/22/21 17:45 98.4 96 16 122/59 (80) 90 Room Air 98.4 02/22/21 11:00 4.0 I & O 02/21/21 02/21/21 02/22/21 15:00 23:00 07:00 Intake Total 0 ml 0 ml Output Total 400 ml 100 ml 475 ml Balance -400 ml -100 ml -475 ml Objective: He is hard of hearing and has poor vision Normal 2+ radial pulses. Bilateral rales. Normal heart tones. Soft abdomen No significant edema. CURRENT MEDICATIONS: Current Medications Medications (Trade) Dose Ordered Sig/Royce Route PRN Reason Start Time Stop Time Status Last Admin Dose Admin Olanzapine (ZyPREXA ZYDIS) 5 mg PRN BID PRN PO ANXIETY / AGITATION 02/21/21 20:15 02/21/21 20:23 Furosemide (Lasix) 40 mg 1X ONCE IVP 02/22/21 04:45 02/22/21 04:46 DC 02/22/21 04:53 Cyanocobalamin (Vitamin B-12 Inj) 1,000 mcg DAILY IM 02/22/21 12:00 02/22/21 13:22 Pantoprazole Sodium (Protonix) 40 mg DAILYAC PO 02/22/21 12:00 02/22/21 13:21 Clopidogrel Bisulfate (Plavix) 75 mg DAILYWBKFT PO 02/22/21 13:00 02/22/21 13:21 DIAGNOSTIC TESTING: Labs: Laboratory Tests 02/22/21 00:47 02/22/21 04:10 Laboratory Tests Test 02/21/21 20:32 02/21/21 22:00 02/22/21 00:47 02/22/21 03:19 Glucose (Fingerstick) 174 mg/dL (70-99) H 252 mg/dL (70-99) H Heparin Anti-Xa Act, Unfractionated 0.34 IU/mL (0.30-0.70) White Blood Count 12.2 x10^3/uL (4.0-11.0) H Red Blood Count 2.15 x10^6/uL (4.30-5.70) L Hemoglobin 6.7 g/dL (13.0-17.5) *L Hematocrit 19.7 % (39.0-53.0) *L Mean Corpuscular Volume 92 fL (79-100) Mean Corpuscular Hemoglobin 31 pg (25-35) Mean Corpuscular Hemoglobin Concent 34 g/dL (31-37) Red Cell Distribution Width 14.8 % (11.5-14.5) H Platelet Count 249 x10^3/uL (140-400) Neutrophils (%) (Auto) 86 % (31-73) H Lymphocytes (%) (Auto) 5 % (24-48) L Monocytes (%) (Auto) 8 % (0-9) Eosinophils (%) (Auto) 0 % (0-3) Basophils (%) (Auto) 1 % (0-3) Neutrophils # (Auto) 10.5 x10^3/uL (1.8-7.7) H Lymphocytes # (Auto) 0.6 x10^3/uL (1.0-4.8) L Monocytes # (Auto) 1.0 x10^3/uL (0.0-1.1) Eosinophils # (Auto) 0.0 x10^3/uL (0.0-0.7) Basophils # (Auto) 0.1 x10^3/uL (0.0-0.2) Segmented Neutrophils % 89 % (35-66) H Lymphocytes % 7 % (24-48) L Monocytes % 4 % (0-10) Platelet Estimate Adequate (ADEQUATE) Polychromasia Slight Sodium Level 141 mmol/L (136-145) Potassium Level 4.0 mmol/L (3.5-5.1) Chloride Level 105 mmol/L (98-107) Carbon Dioxide Level 23 mmol/L (21-32) Anion Gap 13 (6-14) Blood Urea Nitrogen 32 mg/dL (8-26) H Creatinine 1.9 mg/dL (0.7-1.3) H Estimated GFR (Cockcroft-Gault) 34.0 Glucose Level 237 mg/dL (70-99) H Calcium Level 8.8 mg/dL (8.5-10.1) Test 8/23/21 03:33 02/22/21 04:10 02/22/21 08:18 02/22/21 11:42 O2 Saturation 98 % (92-99) Arterial Blood pH 7.48 (7.35-7.45) H Arterial Blood pCO2 at Patient Temp 24 mmHg (35-46) L Arterial Blood pO2 at Patient Temp 155 mmHg (65-108) H Arterial Blood HCO3 17 mmol/L (21-28) L Arterial Blood Base Excess -6 mmol/L (-3-3) L Oxyhemoglobin 97.8 % Methemoglobin 0.2 % (0.0-1.9) Carbon Monoxide, Quantitative 0.3 % (0.0-1.9) FiO2 60 White Blood Count 12.8 x10^3/uL (4.0-11.0) H Red Blood Count 2.63 x10^6/uL (4.30-5.70) L Hemoglobin 8.0 g/dL (13.0-17.5) L Hematocrit 24.7 % (39.0-53.0) L Mean Corpuscular Volume 94 fL (79-100) Mean Corpuscular Hemoglobin 31 pg (25-35) Mean Corpuscular Hemoglobin Concent 32 g/dL (31-37) Red Cell Distribution Width 15.8 % (11.5-14.5) H Platelet Count 229 x10^3/uL (140-400) Neutrophils (%) (Auto) 84 % (31-73) H Lymphocytes (%) (Auto) 6 % (24-48) L Monocytes (%) (Auto) 10 % (0-9) H Eosinophils (%) (Auto) 0 % (0-3) Basophils (%) (Auto) 0 % (0-3) Neutrophils # (Auto) 10.7 x10^3/uL (1.8-7.7) H Lymphocytes # (Auto) 0.8 x10^3/uL (1.0-4.8) L Monocytes # (Auto) 1.2 x10^3/uL (0.0-1.1) H Eosinophils # (Auto) 0.0 x10^3/uL (0.0-0.7) Basophils # (Auto) 0.0 x10^3/uL (0.0-0.2) Heparin Anti-Xa Act, Unfractionated 0.48 IU/mL (0.30-0.70) Glucose (Fingerstick) 186 mg/dL (70-99) H 175 mg/dL (70-99) H Test 02/22/21 17:03 Glucose (Fingerstick) 196 mg/dL (70-99) H ASSESSMENT: 1. 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 Dyslipidemia 4. HTN 5. CKD 6. Anemia. PLAN: 1. Discussed case with [facility] for possible transfer. He has been accepted at their facility, waiting for bed. Transfer would allow him to have surgical back up and he is also high risk and may need emergent support device such as axillary impella or IABP. Discussed with Dr. Frias at [facility]. Family and patient in agreement given overnight issues and high risk complex PCI that he will be better [facility] Thanks. Justicifation of Admission Dx: Justifications for Admission: Justification of Admission Dx: Yes [place]: Acute NSTEMI SEAN SIMONS MD Feb 22, 2021 18:05
[2021-02-22] MEDS: ATORVASTATIN CALCIUM 40 MG TABLET. PO SCH (19:47)
[2021-02-22] MEDS ORDERED: METO25TA4 PO (22:00)
== END 2021-02-22 20:38 | disposition short-term general hospital (02) | DRG 280 ==
LOC: 6 SOUTH 04:55
PROVIDERS: ADMIT Family Medicine; ATTEND Family Medicine
PROC: 4A023N7 Measurement of Cardiac Sampling and Pressure, Left Heart, Percutaneous Approach (ICD-10-PCS; 2021-02-21)
PROC: B2111ZZ Fluoroscopy of Multiple Coronary Arteries using Low Osmolar Contrast (ICD-10-PCS; 2021-02-21)
PROC: 30233N1 Transfusion of Nonautologous Red Blood Cells into Peripheral Vein, Percutaneous Approach (ICD-10-PCS; principal; 2021-02-22)
PROC: 5A09357 Assistance with Respiratory Ventilation, Less than 24 Consecutive Hours, Continuous Positive Airway Pressure (ICD-10-PCS; 2021-02-22)
DX: I21.4 Non-ST elevation (NSTEMI) myocardial infarction (principal); J96.01 Acute respiratory failure with hypoxia; I50.41 Acute combined systolic (congestive) and diastolic (congestive) heart failure; I13.0 Hypertensive heart and chronic kidney disease with heart failure and stage 1 through stage 4 chronic kidney disease, or unspecified chronic kidney disease; D63.8 Anemia in other chronic diseases classified elsewhere; E11.22 Type 2 diabetes mellitus with diabetic chronic kidney disease; E11.51 Type 2 diabetes mellitus with diabetic peripheral angiopathy without gangrene; E53.8 Deficiency of other specified B group vitamins; E66.9 Obesity, unspecified; E78.5 Hyperlipidemia, unspecified; I25.10 Atherosclerotic heart disease of native coronary artery without angina pectoris; I25.2 Old myocardial infarction; I25.5 Ischemic cardiomyopathy; M19.90 Unspecified osteoarthritis, unspecified site; M79.7 Fibromyalgia; N18.9 Chronic kidney disease, unspecified; I08.1 Rheumatic disorders of both mitral and tricuspid valves; Z79.82 Long term (current) use of aspirin; Z79.84 Long term (current) use of oral hypoglycemic drugs; Z79.899 Other long term (current) drug therapy; Z82.49 Family history of ischemic heart disease and other diseases of the circulatory system; Z95.5 Presence of coronary angioplasty implant and graft; Z88.0 Allergy status to penicillin; Z88.8 Allergy status to other drugs, medicaments and biological substances; Z68.30 Body mass index [BMI] 30.0-30.9, adult
CPT/HCPCS: 36415; 36600; 71045; 80048; 80053; 80061; 81001; 82607; 82805; 82962; 83540; 83550; 83880; 84484; 85007; 85025; 85027; 85045; 85520; 86850; 86900; 86901; 86920; 93005; 93306; 93458; 94640; 94660; 99152; 99153; C1894; J1644; J1940; J2250; J3010; J3420; J3490; J7030; P9016; Q9967; G0378